=== PATIENT | male | born 1975 | race Caucasian/White ===

== ENCOUNTER 2019-12-13 12:25 | Inpatient (IN) | payer OTHER, SELFPAY ==
[2019-12-13 13:13] VITALS: BP 118/65; PULSE 83; RESP 20; TEMP 36.8; BMI 25.1
--- NOTE | 2019-12-13 13:40 | ED.PSYCH ---
HPI - Psych General Chief Complaint: Psychiatric Symptoms Stated Complaint: CRISIS Time Seen by Provider: 12/13/19 13:21 Source: patient Mode of arrival: ambulatory Limitations: no limitations History of Present Illness HPI Narrative: patient comes to the emergency room complaining of worsening depression, suicidal ideation. Patient states he tried to cut open his wrists with needles prior to arrival. Patient admits to use heroin and alcohol. Patient crying, states he needs help. Related Data Allergies Allergy/AdvReac Type Severity Reaction Status Date / Time No Known Allergies Allergy Unverified 11/01/19 14:54 Review of Systems Review of Systems: Constitutional : No Weight loss, No Fever, No Chills, No Night Sweats, No Fatigue, No Malaise ENT/Mouth : No Hearing loss, No Ear Pain, No Nasal Congestion, No Sinus Pain, No Hoarseness, No sore throat, No Rhinorrhea, No Swallowing Difficulty Eyes: No Eye Pain, No Swelling, No Redness, No Foreign Body, No Discharge, No Vision Changes Cardiovascular : No Chest Pain, No SOB, No Dyspnea on Exertion, No Orthopnea, No Edema, No Palpitations Respiratory : No Cough, No Sputum, No Wheezing, No Smoke Exposure, No Dyspnea Gastrointestinal : No Nausea, No Vomiting, No Diarrhea, No Constipation, No abdominal Pain, No Hematochezia, No Melena Genitourinary : no irregular bleeding, No Dysuria, No Urinary Frequency, No Hematuria, No Urinary Incontinence, No Urgency, No Flank Pain, No Urinary Flow Changes, No Hesitancy Musculoskeletal : No joint pain, No Myalgias, No Joint Swelling Skin : Old needle tract lesions Neuro : No Weakness, No Numbness, No Paresthesias, No Loss of Consciousness, No Dizziness, No Headache Psych : complaining of anxiety, depression, SI, substance abuse, needing help Heme/Lymph: No Bruising, No Bleeding,No Lymphadenopathy Endocrine : No Polyuria, No Polydipsia, No Temperature Intolerance [facility] Past Medical History Medical History Sepsis Substance abuse Social History Social History Alcohol intake: current Alcohol intake frequency: 3 or more drinks per day Smoking Status: Current every day smoker Smoked in Last 30 Days: Yes Use of substances other than those prescribed or required for medical reasons: Yes Substance Use Type: Heroin Substance Use Frequency: Daily Last Used Substance: Just Prior to Admission Any prior treatment program specific to substance use: Yes Advance Directives: No Advance Directives Information Provided: No Physical Exam Vital Signs: Vital Signs: Vital Signs Temp Pulse Resp BP Pulse Ox 12/13/19 16:41 98.9 F 89 18 120/74 96 12/13/19 15:26 98.6 F 95 20 120/75 97 12/13/19 13:13 98.2 F 83 20 118/65 Body Mass Index 25.1 Appearance: Alert. Oriented X3. No acute distress. seems depressed, crying, calm, cooperative, normal thought process Eyes: Pupils equal, round and reactive to light. ENT: Pharynx normal. Neck: Normal inspection. Neck supple. No lymph nodes noted. No crepitus CVS: Normal heart rate and rhythm. Pulses normal. Normal S1 and S2 Respiratory: No respiratory distress. Breath sounds normal. No Wheezing. No rales Abdomen: Soft and nontender. No rigidity. No distention. good BS x4 Skin: Skin warm and dry. old needle track montemayor in right forearm Extremities: No lower extremity edema. No lower extremity edema. No Lacerations. No Rash Neuro: Oriented X 3. No motor deficit. No sensory deficit. Moving all extermities. No slurred speech. Course Course Course Narrative: crisis evaluation pending sign out given to Dr. Dutta [facility] - Psych Restraints Face to Face Assessment: Face to Face Assessment: Current Situation: After assessment of the patient, a review of the pertinent medical record and a discussion with nursing staff, I feel the patient requires a restrain intervention. Reaction To: [] Medical Condition: [] Behavioral State: [] Continued Need: [] Lab Data Result diagrams: 12/13/19 14:04 12/13/19 14:04 Labs: Lab Results 12/13/19 12/13/19 12/13/19 Range/Units 13:29 14:04 14:04 WBC 8.6 (4.8-10.8) X10*3/uL RBC 3.89 L (4.60-5.80) X10*6/uL Hgb 11.6 L (14.0-18.0) g/dl Hct 35.3 L (42-52) % MCV 90.7 (80-98) fL MCH 29.8 (27.0-33.0) pg MCHC 32.9 (31.0-36.0) g/dl RDW 13.2 (11.0-16.0) % Plt Count 255 (160-400) X10*3/uL MPV 9.3 L (9.4-12.4) fL Immature Gran % (Auto) 0.2 (0.0-0.4) % Neut % (Auto) 49.7 (45-73) % Lymph % (Auto) 39.0 (20-40) % [place] % (Auto) 8.2 (2-11) % Eos % (Auto) 2.4 (0-4) % Baso % (Auto) 0.5 (0-2) % Lymph # (Auto) 3.4 (1.2-4.9) X10*3/uL [place] # (Auto) 0.7 (0.1-1.2) X10*3/uL Eos # (Auto) 0.2 (0.0-0.4) X10*3/uL Baso # (Auto) 0.0 (0.0-0.2) X10*3/uL Abs Immat Gran (auto) 0.02 (0.00-0.03) X10*3/uL Absolute Neuts (auto) 4.3 (2.0-8.3) X10*3/uL Absolute Nucleated RBC 0.000 (0.0-0.012) X10*3/uL Nucleated RBC % (auto) 0.0 (0.0-0.2) /100WBC Sodium 138 (135-145) mmol/L Potassium 3.8 (3.3-5.1) mmol/l Chloride 104 (96-108) mmol/L Carbon Dioxide 23 (22-29) mmol/L Anion Gap 15 (12-20) BUN 6 L (9-16) mg/dL Creatinine 0.69 (0.5-1.4) mg/dL Estim Creat Clear Calc 126.3 Estimated GFR > 60 Random Glucose 108 (60-115) mg/dL Calcium 8.8 (8.4-10.2) mg/dL Total Bilirubin 0.7 (0.0-1.0) mg/dL Direct Bilirubin (0.0-0.5) mg/dL AST 68 H (5-37) U/L ALT 81 H (0-40) U/L Alkaline Phosphatase 95 (39-117) U/L Total Protein 7.3 (6.5-8.0) g/dL Albumin 4.2 (3.5-5.0) g/dL Salicylates < 5.0 L (15-30) mg/dL Urine Opiates Screen POSITIVE H (Not Detect) Acetaminophen < 1 (<30) mcg/mL Ur Barbiturates Screen Not Detected (Not Detect) Ur Phencyclidine Scrn Not Detected (Not Detect) Ur Amphetamines Screen Not Detected (Not Detect) U Benzodiazepines Scrn Not Detected (Not Detect) Urine Cocaine Screen Not Detected (Not Detect) U Marijuana (THC) Screen Not Detected (Not Detect) Ethyl Alcohol mg/dL 12/13/19 12/13/19 Range/Units 14:04 14:04 WBC (4.8-10.8) X10*3/uL RBC (4.60-5.80) X10*6/uL Hgb (14.0-18.0) g/dl Hct (42-52) % MCV (80-98) fL MCH (27.0-33.0) pg MCHC (31.0-36.0) g/dl RDW (11.0-16.0) % Plt Count (160-400) X10*3/uL MPV (9.4-12.4) fL Immature Gran % (Auto) (0.0-0.4) % Neut % (Auto) (45-73) % Lymph % (Auto) (20-40) % [place] % (Auto) (2-11) % Eos % (Auto) (0-4) % Baso % (Auto) (0-2) % Lymph # (Auto) (1.2-4.9) X10*3/uL [place] # (Auto) (0.1-1.2) X10*3/uL Eos # (Auto) (0.0-0.4) X10*3/uL Baso # (Auto) (0.0-0.2) X10*3/uL Abs Immat Gran (auto) (0.00-0.03) X10*3/uL Absolute Neuts (auto) (2.0-8.3) X10*3/uL Absolute Nucleated RBC (0.0-0.012) X10*3/uL Nucleated RBC % (auto) (0.0-0.2) /100WBC Sodium (135-145) mmol/L Potassium (3.3-5.1) mmol/l Chloride (96-108) mmol/L Carbon Dioxide (22-29) mmol/L Anion Gap (12-20) BUN (9-16) mg/dL Creatinine (0.5-1.4) mg/dL Estim Creat Clear Calc Estimated GFR Random Glucose (60-115) mg/dL Calcium (8.4-10.2) mg/dL Total Bilirubin 0.7 (0.0-1.0) mg/dL Direct Bilirubin 0.2 (0.0-0.5) mg/dL AST 68 H (5-37) U/L ALT 83 H (0-40) U/L Alkaline Phosphatase 97 (39-117) U/L Total Protein 7.3 (6.5-8.0) g/dL Albumin 4.2 (3.5-5.0) g/dL Salicylates (15-30) mg/dL Urine Opiates Screen (Not Detect) Acetaminophen (<30) mcg/mL Ur Barbiturates Screen (Not Detect) Ur Phencyclidine Scrn (Not Detect) Ur Amphetamines Screen (Not Detect) U Benzodiazepines Scrn (Not Detect) Urine Cocaine Screen (Not Detect) U Marijuana (THC) Screen (Not Detect) Ethyl Alcohol 137 mg/dL Discharge Plan Discharge Clinical Impression: Depression, Suicidal ideation
[2019-12-13 14:05] LABS: Amphetamine Screen Urine Not Detected (Not Detect); Barbiturates, Urine Not Detected (Not Detect); Benzodiazepines Screen Urine Not Detected (Not Detect); Cannabinoid Screen Urine Not Detected (Not Detect); Cocaine Screen Urine Not Detected (Not Detect); Opiate Screen Urine POSITIVE (Not Detect); Phencyclidine Screen Urine Not Detected (Not Detect)
[2019-12-13 14:13] LABS: MANUAL DIFF FLAG NO
[2019-12-13 14:16] LABS: Basophils Percent Auto 0.5 % (0-2); Eosinophils Absolute Auto 0.2 X10*3/uL (0.0-0.4); Eosinophils Percent Auto 2.4 % (0-4); Hematocrit 35.3 % (42-52); Hemoglobin 11.6 g/dl (14.0-18.0); Imm Gran Abs Auto 0.02 X10*3/uL (0.00-0.03); Imm Gran Pct Auto 0.2 % (0.0-0.4); Lymphocytes Absolute Auto 3.4 X10*3/uL (1.2-4.9); Mean Corpuscular HGB Conc 32.9 g/dl (31.0-36.0); Mean Corpuscular Hemoglobin 29.8 pg (27.0-33.0); Mean Corpuscular Volume 90.7 fL (80-98); Mean Platelet Volume 9.3 fL (9.4-12.4); Monocytes Absolute Auto 0.7 X10*3/uL (0.1-1.2); Monocytes Percent Auto 8.2 % (2-11); Neutrophils Absolute Auto 4.3 X10*3/uL (2.0-8.3); Neutrophils Percent Auto 49.7 % (45-73); Platelet Count 255 X10*3/uL (160-400); Red Blood Count 3.89 X10*6/uL (4.60-5.80); Red Cell Distribution Width 13.2 % (11.0-16.0); White Blood Count 8.6 X10*3/uL (4.8-10.8)
[2019-12-13 14:37] LABS: Ethanol 137 mg/dL
[2019-12-13 14:40] LABS: Alanine Aminotransferase 83 U/L (0-40); Albumin Level 4.2 g/dL (3.5-5.0); Alkaline Phosphatase 97 U/L (39-117); Aspartate Amino Transferase 68 U/L (5-37); Bilirubin Direct 0.2 mg/dL (0.0-0.5); Bilirubin Total 0.7 mg/dL (0.0-1.0); Total Protein 7.3 g/dL (6.5-8.0)
[2019-12-13 14:41] LABS: Acetaminophen LAB < 1 mcg/mL (<30); Alanine Aminotransferase 81 U/L (0-40); Albumin Level 4.2 g/dL (3.5-5.0); Alkaline Phosphatase 95 U/L (39-117); Anion Gap 15 (12-20); Aspartate Amino Transferase 68 U/L (5-37); Bilirubin Total 0.7 mg/dL (0.0-1.0); Blood Urea Nitrogen 6 mg/dL (9-16); Calcium 8.8 mg/dL (8.4-10.2); Carbon Dioxide 23 mmol/L (22-29); Chloride 104 mmol/L (96-108); Creatinine Clr Calc Pharmacy 126.3; Estimated Glomerular Filt Rate > 60; Glucose Random 108 mg/dL (60-115); Potassium 3.8 mmol/l (3.3-5.1); Salicylate < 5.0 mg/dL (15-30); Sodium 138 mmol/L (135-145); Total Protein 7.3 g/dL (6.5-8.0)
[2019-12-13 15:26] VITALS: BP 120/75; PULSE 95; RESP 20; TEMP 37; O2SAT 97
--- NOTE | 2019-12-13 15:38 | PC.NURSE ---
Dr Puente notified that pt is experiencing symptoms of withdrawal including nausea, tremors, diaphoresis.
[2019-12-13] MEDS: LORazepam 1 MG TABLET 2 MG PO ×2 (15:43)
[2019-12-13 16:41] VITALS: BP 120/74; PULSE 89; RESP 18; TEMP 37.2; O2SAT 96
[2019-12-13 18:00] VITALS: BP 118/75; PULSE 78; RESP 20
[2019-12-13] MEDS: Ibuprofen 600 MG TABLET PO (18:42)
[2019-12-13] MEDS: LORazepam 1 MG TABLET PO (18:42)
--- NOTE | 2019-12-13 19:14 | PC.NURSE ---
Report received. PT is sleeping in bed. Breathing is even and unlabored. Waiting to be seen be N.
--- NOTE | 2019-12-13 19:37 | PC.NURSE ---
Care Team to see PT to expedite transfer to [facility].
[2019-12-13 21:41] VITALS: BP 103/41; PULSE 96; RESP 18; TEMP 37.1; O2SAT 97
[2019-12-13 22:49] LABS: SARS COV2 PCR INHOUSE NEGATIVE (Negative)
[2019-12-14] VITALS (7 sets, daily range): BP systolic 112–144; BP diastolic 70–88; PULSE 60–97; RESP 16–18; TEMP 36.4–36.7; O2SAT 98–100
--- NOTE | 2019-12-14 02:55 | PC.ADMIT ---
Patient is an Maltese speaking 44 yo male presenting to for unspecified depressive disorder, AUD, and OUD. Pt walked to [facility] ED on 12/12/29 and was admitted related to SI with plan. Pt reported using needles to make himself bleed out and then began using needles to cut tips of fingers. Superficial puncture wounds/scratches assessed of bilateral wrists and tips of fingers with no S&S of infection. IV injection site on right forearm assessed w/ no S&S of infection. No other compromise to skin integrity was reported by pt and none was observed by this nurse. Pending full H&P by a provider. Pt has a medical hx of sepsis (2015), seizure r/t ETOH withdrawal (over 10 years ago, bilateral chronic shoulder/right knee pain (/ pain), and hx of difficulty sleeping. Pt reports 10+ yr hx of opiate use. He had tapered down to 60 mg daily through [facility]. In September, I just stopped going. Pt has been using 5 bags of heroin daily since. Pt also used minimum of 4x 24 oz. cans of beer daily for years. Last use of ETOH and heroin was in the morning of 12/13/19. Pt reports having 8 seizures in one day due to ETOH withdrawal over 10 years ago. I was drinking a gallon of vodka a day. Pt informed of precipitated withdrawal r/t early admin of Suboxone. He expressed interest in maintenance or taper. Pt also smokes 1/2 pack of cigarettes daily and is interested in gum/patch but not in cessation at this time. Pt was previosly admitted to [facility] in 2018 but nor [facility] for psych. No psychiatrist/therapist in the past year and pharmacy denied medication over past year. Pt currently lives in an apartment with roommates actively using drugs. Pt is estranged from who also uses opiates. His mother 4 years ago: I've never grieved her loss. He reports positive relationship with cousin and signed release. Current income is supported by [employer] and food assistance. At time of admission pt denied current SI/plan and agreeable to seek staff if necessary. Pt denied HI but does have a hx of incarceration r/t A&B. Denied AH/VH; denied allergies. Pt presented as restless, with his head down on the table. Reported diarrhea, myalgia, and nausea r/t withdrawal. VSS. Oriented to unit. Placed on 5 min safety checks pending orders from on-call provider.
[2019-12-14] MEDS: LORazepam 1 MG TABLET PO ×4 (09:09→20:53)
[2019-12-14] MEDS: Acetaminophen 325 MG TABLET 650 MG PO ×2 (09:14→21:25)
[2019-12-14] MEDS: hydrOXYzine HCL 25 MG TABLET PO ×2 (09:14→20:53)
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
[2019-12-14] MEDS: Buprenorphine/Naloxone 4/1 mg FILM 1 FILM SUBLINGUAL ×2 (14:40→17:44)
[2019-12-14] MEDS: Cyclobenzaprine HCl 5 MG TABLET PO (20:53)
[2019-12-14] MEDS: cloNIDine HCL 0.1 MG TABLET PO (20:53)
[2019-12-14] MEDS: QUEtiapine Fumarate 50 MG TABLET PO (21:26)
[2019-12-15] MEDS: hydrOXYzine HCL 25 MG TABLET PO (00:03)
[2019-12-15] MEDS: QUEtiapine Fumarate 50 MG TABLET PO (00:03)
[2019-12-15 06:40] VITALS: BP 99/59; PULSE 62; RESP 16; TEMP 36.8
[2019-12-15 08:00] VITALS: BP 112/72; PULSE 88; RESP 18; TEMP 36.6; O2SAT 99
[2019-12-15] MEDS: Buprenorphine/Naloxone 8/2 mg FILM 1 FILM SUBLINGUAL (09:14)
[2019-12-15 09:15] VITALS: BP 120/80; PULSE 70
[2019-12-15] MEDS: cloNIDine HCL 0.1 MG TABLET PO (09:15)
[2019-12-15] MEDS: Sertraline HCL 50 MG TABLET PO (09:19)
[2019-12-15] MEDS: LORazepam 1 MG TABLET PO ×3 (09:19→21:13)
--- NOTE | 2019-12-15 10:55 | P.PNPSI_ITS ---
Subjective Subjective Date of Service: 12/15/19 Reason For Visit: CRISIS/DEPRESSION/SI Subjective Notes: Conditional Voluntary Interim History: Patient struggling with himself, doesn't like who he has become. Depressed and anxious after years of opiate abuse feeling hopless and helpless does report stomach feels better on current medication up 3x last night 12mn, then 1:30 then 3 am co pain in shoulder some minor withdrawl still though looks defeated some diaphoresis agree to inc suboxone 8 to 12mg/day Medication Compliance: Yes Side effects from medications: No Attending Groups: Intermittent Review of Systems Acute medical concerns: No Review of Systems Review of Systems Yes all other systems are reviewed and are negative Constitutional: Reports excessive sweating, Reports fatigue and Reports lethargy Endocrine: Reports excessive sweating and Reports fatigue Mental Status Exam Mental Status Exam Narrative: Alert - depressed, restricted, hopeless/helpless some si - no current plan/intent on unit Patient Appearance: Fatigued and Unkempt Patient Orientation: Person, Place, Time and Situation Level of Consciousness: Awake and Appropriate Patient Behavior: Appropriate, Cooperative and Good Eye Contact Mood Description: Constricted and Depressed Affect Description: Constricted and Depressed Patient Cognition Impaired: No Ability to Follow Directions: Good Speech Pattern: Clear Hallucinations: None Delusions: Not Present Thought Process: Intact and Goal Oriented Thought Content: positive for Intact, positive for Goal Oriented and positive for Suicidal Ideation (feelings of self hatred) Depressive Symptoms: Difficulty Sleeping, Feelings of Worthlessness, Hopel essness and Thoughts of /Suicide Abnormal Motor Activity Signs and Symptoms: Restlessness Judgement: Fair Diagnostics Vital Signs (24Hr): Vital Signs - 24 hr 12/14/19 14:33 12/14/19 17:50 12/14/19 20:53 Temperature 98.1 F Pulse Rate 97 96 93 Respiratory Rate Blood Pressure 144/76 H 117/88 112/76 12/14/19 20:55 12/15/19 06:40 12/15/19 09:15 Temperature 97.8 F 98.2 F Pulse Rate 62 70 Respiratory Rate 16 Blood Pressure 99/59 L 120/80 Body Mass Index 25.1 Labs Results: 12/13/19 14:04 12/13/19 14:04 Labs: Laboratory Results - last 48 hr 12/13/19 12/13/19 12/13/19 13:29 14:04 14:04 WBC 8.6 RBC 3.89 L Hgb 11.6 L Hct 35.3 L MCV 90.7 MCH 29.8 MCHC 32.9 RDW 13.2 Plt Count 255 MPV 9.3 L Immature Gran % (Auto) 0.2 Neut % (Auto) 49.7 Lymph % (Auto) 39.0 [place] % (Auto) 8.2 Eos % (Auto) 2.4 Baso % (Auto) 0.5 Lymph # (Auto) 3.4 [place] # (Auto) 0.7 Eos # (Auto) 0.2 Baso # (Auto) 0.0 Abs Immat Gran (auto) 0.02 Absolute Neuts (auto) 4.3 Absolute Nucleated RBC 0.000 Nucleated RBC % (auto) 0.0 Sodium 138 Potassium 3.8 Chloride 104 Carbon Dioxide 23 Anion Gap 15 BUN 6 L Creatinine 0.69 Estim Creat Clear Calc 126.3 Estimated GFR > 60 Random Glucose 108 Calcium 8.8 Total Bilirubin 0.7 Direct Bilirubin AST 68 H ALT 81 H Alkaline Phosphatase 95 Total Protein 7.3 Albumin 4.2 Salicylates < 5.0 L Urine Opiates Screen POSITIVE H Acetaminophen < 1 Ur Barbiturates Screen Not Detected Ur Phencyclidine Scrn Not Detected Ur Amphetamines Screen Not Detected U Benzodiazepines Scrn Not Detected Urine Cocaine Screen Not Detected U Marijuana (THC) Screen Not Detected Ethyl Alcohol Coronavirus (PCR) 12/13/19 12/13/19 12/13/19 14:04 14:04 21:19 WBC RBC Hgb Hct MCV MCH MCHC RDW Plt Count MPV Immature Gran % (Auto) Neut % (Auto) Lymph % (Auto) [place] % (Auto) Eos % (Auto) Baso % (Auto) Lymph # (Auto) [place] # (Auto) Eos # (Auto) Baso # (Auto) Abs Immat Gran (auto) Absolute Neuts (auto) Absolute Nucleated RBC Nucleated RBC % (auto) Sodium Potassium Chloride Carbon Dioxide Anion Gap BUN Creatinine Estim Creat Clear Calc Estimated GFR Random Glucose Calcium Total Bilirubin 0.7 Direct Bilirubin 0.2 AST 68 H ALT 83 H Alkaline Phosphatase 97 Total Protein 7.3 Albumin 4.2 Salicylates Urine Opiates Screen Acetaminophen Ur Barbiturates Screen Ur Phencyclidine Scrn Ur Amphetamines Screen U Benzodiazepines Scrn Urine Cocaine Screen U Marijuana (THC) Screen Ethyl Alcohol 137 Coronavirus (PCR) NEGATIVE Medications Medications Current Medications Generic Name Dose Route Start Last Admin Trade Name Freq PRN Reason Stop Dose Admin Acetaminophen 650 mg 12/14/19 05:39 12/14/19 21:25 Acetaminophen 325 Mg Tablet PO 650 mg Q6H PRN Administration Headache/Pain Mild Scale (1-3) Al Hydroxide/Mg Hydroxide 30 ml 12/13/19 23:23 Magnesium Hydrox/Alum Hydrox 30 Ml Oral.Susp PO Q6H PRN Heartburn/Nausea Buprenorphine/Naloxone 1 film 12/15/19 09:00 12/15/19 09:14 Buprenorphine/Naloxone 8/2 Mg Film SUBLINGUAL 1 film DAILY TONY Administration Clonidine HCl 0.1 mg 12/14/19 05:39 12/14/19 20:53 Clonidine Hcl 0.1 Mg Tablet PO 0.1 mg Q4H PRN Administration Opiate Withdrawal Protocol Clonidine HCl 0.1 mg 12/15/19 09:00 12/15/19 09:15 Clonidine Hcl 0.1 Mg Tablet PO 0.1 mg TID TONY Administration Protocol Cyclobenzaprine HCl 5 mg 12/14/19 05:39 12/14/19 20:53 Cyclobenzaprine Hcl 5 Mg Tablet PO 5 mg TID PRN Administration Muscle Spasm Hydroxyzine HCl 25 mg 12/14/19 05:39 12/15/19 00:03 Hydroxyzine Hcl 25 Mg Tablet PO 25 mg Q6H PRN Administration Opiate Withdrawal Loperamide HCl 4 mg 12/14/19 14:15 Loperamide Hcl 2 Mg Capsule PO Q4H PRN Diarrhea Lorazepam 1 mg 12/14/19 07:29 12/15/19 09:20 Lorazepam 1 Mg Tablet PO 12/18/19 07:28 Not Given Q6H TONY Taper Lorazepam 1 mg 12/15/19 09:00 12/15/19 09:19 Lorazepam 1 Mg Tablet PO 1 mg TID TONY Administration Magnesium Hydroxide 30 ml 12/13/19 23:23 Milk Of Magnesia 30 Ml Oral.Susp PO DAILY PRN Constipation Nicotine 21 mg 12/14/19 09:00 12/15/19 09:29 Nicotine 21 Mg Patch.Td24 TRANSDERMA Not Given DAILY TONY Nicotine Polacrilex 4 mg 12/14/19 05:39 Nicotine Polacrilex 2 Mg Gum BUCCAL Q2H PRN Nicotine Cravings Ondansetron HCl 4 mg 12/14/19 05:39 12/14/19 20:53 Ondansetron Odt 4 Mg Tab.Rapdis TRANSLINGU 4 mg Q6H PRN Administration Nausea Quetiapine Fumarate 50 mg 12/14/19 21:00 12/15/19 00:03 Quetiapine Fumarate 50 Mg Tablet PO 50 mg BEDTIME MRX1 TONY Administration Sertraline HCl 50 mg 12/15/19 09:00 12/15/19 09:19 Sertraline Hcl 50 Mg Tablet PO 50 mg DAILY TONY Administration Trazodone HCl 50 mg 12/15/19 21:00 Trazodone Hcl 50 Mg Tablet PO BEDTIME MRX1 TONY Allergies Allergies Allergy/AdvReac Type Severity Reaction Status Date / Time No Known Allergies Allergy Unverified 11/01/19 14:54 Assessment & Plan Assessment & Plan (1) Opioid use disorder, severe, in controlled environment: Status: Acute Code(s): F11.20 - Opioid dependence, uncomplicated Assessment and Plan: tolerated induction of suboxone, now adjusting dose no cravings but some diaphoresis (2) Alcohol use disorder, severe, dependence: Status: Acute Code(s): F10.20 - Alcohol dependence, uncomplicated Assessment and Plan: on ativan with fair effect no craving will need taper off ativan (3) Major depressive disorder with current active episode: Status: Acute Code(s): F32.9 - Major depressive disorder, single episode, unspecified Assessment and Plan: taking medications for depression , tolerating trial still hugely depressed (4) Suicidal ideation: Status: Acute Code(s): R45.851 - Suicidal ideations Assessment and Plan: agrees not to hurt self on unti will tell staff if he is having thoughts of acting on si Greater than 50% of the session was spent on counseling and/or coordination of care
[2019-12-15 12:00] VITALS: BP 117/68; PULSE 77; RESP 17; TEMP 36.6; O2SAT 100
[2019-12-15] MEDS: Buprenorphine/Naloxone 4/1 mg FILM 1 FILM SUBLINGUAL (15:00)
[2019-12-15 16:00] VITALS: BP 98/67; PULSE 73; TEMP 36.6
[2019-12-15] MEDS: Cyclobenzaprine HCl 5 MG TABLET PO (21:13)
[2019-12-15] MEDS: QUEtiapine Fumarate 50 MG TABLET 100 MG PO ×2 (21:13→23:05)
[2019-12-15] MEDS: Loperamide HCl 2 MG CAPSULE 4 MG PO (21:13)
[2019-12-16] VITALS (8 sets, daily range): BP systolic 107–127; BP diastolic 58–67; PULSE 69–85; RESP 16–18; TEMP 36.1–36.9; O2SAT 97–98
[2019-12-16] MEDS: Buprenorphine/Naloxone 8/2 mg FILM 1 FILM SUBLINGUAL (09:03)
[2019-12-16] MEDS: LORazepam 1 MG TABLET PO ×2 (09:03→20:35)
[2019-12-16] MEDS: Sertraline HCL 50 MG TABLET PO (09:03)
[2019-12-16] MEDS: hydrOXYzine HCL 25 MG TABLET PO (12:08)
[2019-12-16] MEDS: Acetaminophen 325 MG TABLET 650 MG PO ×2 (12:08→22:26)
[2019-12-16] MEDS: Buprenorphine/Naloxone 4/1 mg FILM 1 FILM SUBLINGUAL (12:08)
--- NOTE | 2019-12-16 15:01 | HO.PSYCHPN ---
Subjective Subjective Date of Service: 12/16/19 Reason For Visit: CRISIS/DEPRESSION/SI Subjective Notes: Conditional Voluntary Interim History: My mother told me to be honest with doctors I never have- reports perfers dark, would like to sleep , hates day- depression yesterday, anxiety today slept better last pm also reports family hx bipolar, mother , uncle aunt, cousin Medication Compliance: Yes Side effects from medications: No Attending Groups: Yes Review of Systems Acute medical concerns: No Medical Review of Systems: unchanged Review of Systems Review of Systems Yes all other systems are reviewed and are negative Mental Status Exam Mental Status Exam Narrative: more kempt today, better eye contact less restricted- no diaphoresis Patient Appearance: Well Grooomed Patient Orientation: Person, Place, Time and Situation Level of Consciousness: Awake and Appropriate Patient Behavior: Appropriate Mood Description: Anxious Affect Description: Calm (full range) Patient Cognition Impaired: No Ability to Follow Directions: Good Speech Pattern: Clear Hallucinations: None and Auditory (reported ah of a voice his own telling him to not come to hospital while on way to hospital) Delusions: Not Present Thought Process: Intact Thought Content: positive for Intact and positive for Suicidal Ideation (sometimes) Depressive Symptoms: Increased Anxiety, Difficulty Sleeping (a bit better last night), Thoughts of /Suicide and Difficulty Concentrating Abnormal Motor Activity Signs and Symptoms: Restlessness Judgement: Fair Diagnostics Vital Signs (24Hr): Vital Signs - 24 hr 12/16/19 06:25 12/16/19 08:00 12/16/19 12:00 Temperature 97.7 F 97.9 F 98 F Pulse Rate 80 78 83 Respiratory Rate 16 18 18 Blood Pressure 115/64 118/67 126/66 Pulse Oximetry 97 98 97 Body Mass Index 25.1 Labs Results: 12/13/19 14:04 12/13/19 14:04 Medications Medications Current Medications Generic Name Dose Route Start Last Admin Trade Name Freq PRN Reason Stop Dose Admin Acetaminophen 650 mg 12/14/19 05:39 12/16/19 12:08 Acetaminophen 325 Mg Tablet PO 650 mg Q6H PRN Administration Headache/Pain Mild Scale (1-3) Al Hydroxide/Mg Hydroxide 30 ml 12/13/19 23:23 Magnesium Hydrox/Alum Hydrox 30 Ml Oral.Susp PO Q6H PRN Heartburn/Nausea Buprenorphine/Naloxone 1 film 12/17/19 09:00 Buprenorphine/Naloxone 12/3 Mg Film SUBLINGUAL DAILY TONY Clonidine HCl 0.1 mg 12/14/19 05:39 12/14/19 20:53 Clonidine Hcl 0.1 Mg Tablet PO 0.1 mg Q4H PRN Administration Opiate Withdrawal Protocol Clonidine HCl 0.1 mg 12/15/19 13:48 Clonidine Hcl 0.1 Mg Tablet PO TID PRN anxiety/opiate withdrawl Protocol Cyclobenzaprine HCl 5 mg 12/14/19 05:39 12/15/19 21:13 Cyclobenzaprine Hcl 5 Mg Tablet PO 5 mg TID PRN Administration Muscle Spasm Hydroxyzine HCl 25 mg 12/14/19 05:39 12/16/19 12:08 Hydroxyzine Hcl 25 Mg Tablet PO 25 mg Q6H PRN Administration Opiate Withdrawal Loperamide HCl 4 mg 12/14/19 14:15 12/15/19 21:13 Loperamide Hcl 2 Mg Capsule PO 4 mg Q4H PRN Administration Diarrhea Lorazepam 0.5 mg 12/15/19 13:56 Lorazepam 1 Mg Tablet PO 12/18/19 07:28 Q6H PRN alcohol withdrawl/severe anxiety Taper Lorazepam 1 mg 12/16/19 21:00 Lorazepam 1 Mg Tablet PO BID TONY Magnesium Hydroxide 30 ml 12/13/19 23:23 Milk Of Magnesia 30 Ml Oral.Susp PO DAILY PRN Constipation Naloxone HCl 4 mg 12/16/19 09:25 Naloxone Hcl Nasal 4 Mg [place] NOSTRILALT ONCE PRN opioid overdose Nicotine Polacrilex 4 mg 12/14/19 05:39 Nicotine Polacrilex 2 Mg Gum BUCCAL Q2H PRN Nicotine Cravings Ondansetron HCl 4 mg 12/14/19 05:39 12/14/19 20:53 Ondansetron Odt 4 Mg Tab.Rapdis TRANSLINGU 4 mg Q6H PRN Administration Nausea Quetiapine Fumarate 100 mg 12/15/19 21:00 12/15/19 23:05 Quetiapine Fumarate 50 Mg Tablet PO 100 mg BEDTIME MRX1 TONY Administration Sertraline HCl 50 mg 12/15/19 09:00 12/16/19 09:03 Sertraline Hcl 50 Mg Tablet PO 50 mg DAILY TONY Administration Trazodone HCl 100 mg 12/15/19 13:48 Trazodone Hcl 50 Mg Tablet PO BEDTIME MRX1 PRN Insomnia Allergies Allergies Allergy/AdvReac Type Severity Reaction Status Date / Time No Known Allergies Allergy Unverified 11/01/19 14:54 Assessment & Plan Assessment & Plan (1) Opioid use disorder, severe, in controlled environment: Status: Acute Code(s): F11.20 - Opioid dependence, uncomplicated Assessment and Plan: taper clonidine on suboxone now 12m seems to holding (2) Alcohol use disorder, severe, dependence: Status: Acute Code(s): F10.20 - Alcohol dependence, uncomplicated Assessment and Plan: taper down on lorazepam (3) Depression: Status: Acute Code(s): F32.9 - Major depressive disorder, single episode, unspecified Assessment and Plan: consider mood stabilizer instead of sertraline? (4) Suicidal ideation: Status: Acute Code(s): R45.851 - Suicidal ideations Assessment and Plan: mileu and groups , monitor Greater than 50% of the session was spent on counseling and/or coordination of care
[2019-12-16] MEDS: cloNIDine HCL 0.1 MG TABLET PO (16:53)
[2019-12-16] MEDS: QUEtiapine Fumarate 50 MG TABLET 100 MG PO ×2 (20:35→22:26)
[2019-12-16] MEDS: traZODone HCL 50 MG TABLET 100 MG PO ×2 (20:35→22:26)
[2019-12-17] VITALS (7 sets, daily range): BP systolic 90–114; BP diastolic 50–70; PULSE 78–86; RESP 16; TEMP 36.3–37.1
[2019-12-17 03:35] LABS: HBS Num1 14.12 mIU/mL (0-7.99); HBc Num1 0.07 S/CO (0.00-0.79); Hepatitis B Core Antibody Nonreactive (Nonreactive); ~HepC Num1 15.36 S/CO (0.00-0.79); ~Hepatitis B Surface Antibody REACTIVE (Nonreactive); ~Hepatitis C Antibody Reactive (Nonreactive)
[2019-12-17 04:07] LABS: HBsAGNum1 0.17 S/CO (0.00-0.99); Hepatitis B Surface Antigen Negative (Negative)
[2019-12-17 04:14] LABS: HIV AB/AG Nonreactive (Nonreactive); HIV Num 1 0.11 S/CO (0.00-0.99)
--- NOTE | 2019-12-17 08:35 | P.PNPSI_ITS ---
Subjective Subjective Reason For Visit: CRISIS/DEPRESSION/SI Interim History: Mood better. No SI. Hopeful and motivated. Suboxone helpful. Encouraged to consider CSS. Taper meds of detox. DW pt re GI referral for Hep C Rx. Review of Systems Review of Systems Yes Other (Detox from opioids and ETOH) Mental Status Exam Mental Status Exam Narrative: more kempt today, better eye contact less restricted- no diaphoresis Patient Appearance: Well Grooomed Patient Orientation: Person, Place, Time and Situation Level of Consciousness: Awake and Appropriate Patient Behavior: Appropriate Mood Description: Anxious Affect Description: Calm (full range) Patient Cognition Impaired: No Ability to Follow Directions: Good Speech Pattern: Clear Diagnostics Vital Signs (24Hr): Vital Signs - 24 hr 12/16/19 12:00 12/16/19 16:53 12/16/19 16:54 Temperature 98 F 98.5 F Pulse Rate 83 69 69 Respiratory Rate 18 Blood Pressure 126/66 109/65 109/65 Pulse Oximetry 97 12/16/19 20:37 12/16/19 22:46 12/17/19 06:05 Temperature 96.9 F 97.4 F Pulse Rate 72 85 78 Respiratory Rate 16 16 Blood Pressure 127/58 L 107/64 90/50 L Pulse Oximetry Body Mass Index 25.1 Labs Results: 12/13/19 14:04 12/13/19 14:04 Labs: Laboratory Results - last 48 hr 12/15/19 12/15/19 13:57 13:57 Hep Bs Antigen Negative Hep Bs Antibody REACTIVE Hep B Core Total Ab Nonreactive Hepatitis C Ab (EIA) Reactive H HIV 1&2 Ab/P24 Ag 4thGn Nonreactive Medications Medications Current Medications Generic Name Dose Route Start Last Admin Trade Name Freq PRN Reason Stop Dose Admin Acetaminophen 650 mg 12/14/19 05:39 12/16/19 22:26 Acetaminophen 325 Mg Tablet PO 650 mg Q6H PRN Administration Headache/Pain Mild Scale (1-3) Al Hydroxide/Mg Hydroxide 30 ml 12/13/19 23:23 Magnesium Hydrox/Alum Hydrox 30 Ml Oral.Susp PO Q6H PRN Heartburn/Nausea Buprenorphine/Naloxone 1 film 12/17/19 09:00 Buprenorphine/Naloxone 12/3 Mg Film SUBLINGUAL DAILY TONY Clonidine HCl 0.1 mg 12/15/19 13:48 Clonidine Hcl 0.1 Mg Tablet PO TID PRN anxiety/opiate withdrawl Protocol Cyclobenzaprine HCl 5 mg 12/14/19 05:39 12/15/19 21:13 Cyclobenzaprine Hcl 5 Mg Tablet PO 5 mg TID PRN Administration Muscle Spasm Hydroxyzine HCl 25 mg 12/14/19 05:39 12/16/19 12:08 Hydroxyzine Hcl 25 Mg Tablet PO 25 mg Q6H PRN Administration Opiate Withdrawal Loperamide HCl 4 mg 12/14/19 14:15 12/15/19 21:13 Loperamide Hcl 2 Mg Capsule PO 4 mg Q4H PRN Administration Diarrhea Lorazepam 0.5 mg 12/15/19 13:56 Lorazepam 1 Mg Tablet PO 12/18/19 07:28 Q6H PRN alcohol withdrawl/severe anxiety Taper Lorazepam 1 mg 12/16/19 21:00 12/16/19 20:35 Lorazepam 1 Mg Tablet PO 1 mg BID TONY Administration Magnesium Hydroxide 30 ml 12/13/19 23:23 Milk Of Magnesia 30 Ml Oral.Susp PO DAILY PRN Constipation Naloxone HCl 4 mg 12/16/19 09:25 Naloxone Hcl Nasal 4 Mg [place] NOSTRILALT ONCE PRN opioid overdose Nicotine Polacrilex 4 mg 12/14/19 05:39 Nicotine Polacrilex 2 Mg Gum BUCCAL Q2H PRN Nicotine Cravings Ondansetron HCl 4 mg 12/14/19 05:39 12/14/19 20:53 Ondansetron Odt 4 Mg Tab.Rapdis TRANSLINGU 4 mg Q6H PRN Administration Nausea Quetiapine Fumarate 100 mg 12/15/19 21:00 12/16/19 22:26 Quetiapine Fumarate 50 Mg Tablet PO 100 mg BEDTIME MRX1 TONY Administration Sertraline HCl 50 mg 12/15/19 09:00 12/16/19 09:03 Sertraline Hcl 50 Mg Tablet PO 50 mg DAILY TONY Administration Trazodone HCl 100 mg 12/15/19 13:48 12/16/19 22:26 Trazodone Hcl 50 Mg Tablet PO 100 mg BEDTIME MRX1 PRN Administration Insomnia Allergies Allergies Allergy/AdvReac Type Severity Reaction Status Date / Time No Known Allergies Allergy Unverified 11/01/19 14:54 Assessment & Plan Assessment & Plan (1) Opioid use disorder, severe, in controlled environment: Status: Acute Code(s): F11.20 - Opioid dependence, uncomplicated Assessment and Plan: taper clonidine on suboxone now 12m seems to holding (2) Alcohol use disorder, severe, dependence: Status: Acute Code(s): F10.20 - Alcohol dependence, uncomplicated Assessment and Plan: taper down on lorazepam. Refer to [facility] (3) Depression: Status: Acute Code(s): F32.9 - Major depressive disorder, single episode, unspecified Assessment and Plan: Ct sertraline (4) Suicidal ideation: Status: Acute Code(s): R45.851 - Suicidal ideations Assessment and Plan: milvignesh and groups , monitor Greater than 50% of the session was spent on counseling and/or coordination of care
[2019-12-17] MEDS: Sertraline HCL 50 MG TABLET PO (08:40)
[2019-12-17] MEDS: Buprenorphine/Naloxone 12/3 mg FILM 1 FILM SUBLINGUAL (08:40)
[2019-12-17] MEDS: LORazepam 1 MG TABLET PO ×2 (08:40→21:07)
[2019-12-17] MEDS: Acetaminophen 325 MG TABLET 650 MG PO (16:06)
[2019-12-17] MEDS: cloNIDine HCL 0.1 MG TABLET PO (16:07)
[2019-12-17] MEDS: QUEtiapine Fumarate 50 MG TABLET 100 MG PO (21:07)
[2019-12-17] MEDS: Cyclobenzaprine HCl 5 MG TABLET PO (21:18)
--- NOTE | 2019-12-18 05:20 | HO.PSYCHPN ---
Subjective Subjective Reason For Visit: CRISIS/DEPRESSION/SI Interim History: Mood better. No SI. Hopeful and motivated. Suboxone helpful. Encouraged to consider CSS. Decreased doses of Lorazepam. WD Sx resolving. Decreased cravings Review of Systems Review of Systems Yes all other systems are reviewed and are negative Mental Status Exam Mental Status Exam Narrative: more kempt today, better eye contact less restricted- no diaphoresis Patient Appearance: Well Grooomed Patient Orientation: Person, Place, Time and Situation Level of Consciousness: Awake and Appropriate Patient Behavior: Appropriate Mood Description: Anxious Affect Description: Calm (full range) Patient Cognition Impaired: No Ability to Follow Directions: Good Speech Pattern: Clear Diagnostics Vital Signs (24Hr): Vital Signs - 24 hr 12/17/19 06:05 12/17/19 08:00 12/17/19 08:53 Temperature 97.4 F Pulse Rate 78 78 78 Respiratory Rate 16 Blood Pressure 90/50 L 90/50 L 90/50 L 12/17/19 12:00 12/17/19 16:00 12/17/19 16:07 Temperature 98.8 F Pulse Rate 78 82 82 Respiratory Rate Blood Pressure 104/62 113/70 113/70 12/17/19 19:45 Temperature 98.0 F Pulse Rate 86 Respiratory Rate Blood Pressure 114/59 L Body Mass Index 25.1 Labs Results: 12/13/19 14:04 12/13/19 14:04 Labs: Laboratory Results - last 48 hr 12/15/19 12/15/19 13:57 13:57 Hep Bs Antigen Negative Hep Bs Antibody REACTIVE Hep B Core Total Ab Nonreactive Hepatitis C Ab (EIA) Reactive H HIV 1&2 Ab/P24 Ag 4thGn Nonreactive Medications Medications Current Medications Generic Name Dose Route Start Last Admin Trade Name Freq PRN Reason Stop Dose Admin Acetaminophen 650 mg 12/14/19 05:39 12/17/19 16:06 Acetaminophen 325 Mg Tablet PO 650 mg Q6H PRN Administration Headache/Pain Mild Scale (1-3) Al Hydroxide/Mg Hydroxide 30 ml 12/13/19 23:23 Magnesium Hydrox/Alum Hydrox 30 Ml Oral.Susp PO Q6H PRN Heartburn/Nausea Buprenorphine/Naloxone 1 film 12/17/19 09:00 12/17/19 08:40 Buprenorphine/Naloxone 12/3 Mg Film SUBLINGUAL 1 film DAILY TONY Administration Clonidine HCl 0.1 mg 12/15/19 13:48 12/17/19 16:07 Clonidine Hcl 0.1 Mg Tablet PO 0.1 mg TID PRN Administration anxiety/opiate withdrawl Protocol Cyclobenzaprine HCl 5 mg 12/14/19 05:39 12/17/19 21:18 Cyclobenzaprine Hcl 5 Mg Tablet PO 5 mg TID PRN Administration Muscle Spasm Hydroxyzine HCl 25 mg 12/14/19 05:39 12/16/19 12:08 Hydroxyzine Hcl 25 Mg Tablet PO 25 mg Q6H PRN Administration Opiate Withdrawal Hydroxyzine HCl 25 mg 12/18/19 09:00 Hydroxyzine Hcl 25 Mg Tablet PO TID TONY Loperamide HCl 4 mg 12/14/19 14:15 12/15/19 21:13 Loperamide Hcl 2 Mg Capsule PO 4 mg Q4H PRN Administration Diarrhea Lorazepam 0.5 mg 12/15/19 13:56 Lorazepam 1 Mg Tablet PO 12/18/19 07:28 Q6H PRN alcohol withdrawl/severe anxiety Taper Lorazepam 0.5 mg 12/18/19 09:00 Lorazepam 1 Mg Tablet PO BID TONY Magnesium Hydroxide 30 ml 12/13/19 23:23 Milk Of Magnesia 30 Ml Oral.Susp PO DAILY PRN Constipation Naloxone HCl 4 mg 12/16/19 09:25 Naloxone Hcl Nasal 4 Mg [place] NOSTRILALT ONCE PRN opioid overdose Nicotine Polacrilex 4 mg 12/14/19 05:39 Nicotine Polacrilex 2 Mg Gum BUCCAL Q2H PRN Nicotine Cravings Quetiapine Fumarate 100 mg 12/15/19 21:00 12/17/19 21:07 Quetiapine Fumarate 50 Mg Tablet PO 100 mg BEDTIME MRX1 TONY Administration Sertraline HCl 50 mg 12/15/19 09:00 12/17/19 08:40 Sertraline Hcl 50 Mg Tablet PO 50 mg DAILY TONY Administration Trazodone HCl 100 mg 12/15/19 13:48 12/16/19 22:26 Trazodone Hcl 50 Mg Tablet PO 100 mg BEDTIME MRX1 PRN Administration Insomnia Allergies Allergies Allergy/AdvReac Type Severity Reaction Status Date / Time No Known Allergies Allergy Unverified 11/01/19 14:54 Assessment & Plan Assessment & Plan (1) Opioid use disorder, severe, in controlled environment: Status: Acute Code(s): F11.20 - Opioid dependence, uncomplicated Assessment and Plan: taper clonidine on suboxone now 12m seems to holding Decrease Loraz. Increase Zoloft (2) Alcohol use disorder, severe, dependence: Status: Acute Code(s): F10.20 - Alcohol dependence, uncomplicated Assessment and Plan: taper down on lorazepam. Refer to [facility] (3) Depression: Status: Acute Code(s): F32.9 - Major depressive disorder, single episode, unspecified Assessment and Plan: Ct sertraline (4) Suicidal ideation: Status: Acute Code(s): R45.851 - Suicidal ideations Assessment and Plan: mony and groups , monitor Greater than 50% of the session was spent on counseling and/or coordination of care
[2019-12-18 06:15] VITALS: BP 98/55; PULSE 71; RESP 18; TEMP 36.8
[2019-12-18] MEDS: Sertraline HCL 50 MG TABLET PO (08:54)
[2019-12-18] MEDS: hydrOXYzine HCL 25 MG TABLET PO ×3 (08:56→21:10)
[2019-12-18] MEDS: LORazepam 1 MG TABLET 0.5 MG PO (08:56)
[2019-12-18] MEDS: Buprenorphine/Naloxone 12/3 mg FILM 1 FILM SUBLINGUAL (08:58)
[2019-12-18 09:34] VITALS: BP 98/55; PULSE 71
[2019-12-18] MEDS: cloNIDine HCL 0.1 MG TABLET PO ×2 (09:34→16:09)
[2019-12-18] MEDS: Cyclobenzaprine HCl 5 MG TABLET PO (09:36)
[2019-12-18 16:09] VITALS: BP 109/73; PULSE 88
[2019-12-18 16:26] VITALS: BP 109/73; PULSE 88; TEMP 37.2
[2019-12-18 16:27] VITALS: BP 109/73; PULSE 88; TEMP 37.2
[2019-12-18] MEDS: Nicotine Polacrilex 2 MG GUM 4 MG BUCCAL (18:30)
[2019-12-18] MEDS: traZODone HCL 50 MG TABLET 100 MG PO (21:10)
[2019-12-18] MEDS: QUEtiapine Fumarate 50 MG TABLET 100 MG PO (21:10)
[2019-12-18] MEDS: LORazepam 0.5 MG TABLET PO (21:10)
[2019-12-19 06:10] VITALS: BP 100/61; PULSE 73; RESP 18; TEMP 36.6
--- NOTE | 2019-12-19 06:37 | HO.PSYCHPN ---
Subjective Subjective Reason For Visit: CRISIS/DEPRESSION/SI Interim History: Mood better. No SI. Hopeful and motivated. Suboxone helpful. Encouraged to consider CSS. Decreased doses of Lorazepam. WD Sx resolving. Decreased cravings Mental Status Exam Mental Status Exam Narrative: more kempt today, better eye contact less restricted- no diaphoresis Patient Appearance: Well Grooomed Patient Orientation: Person, Place, Time and Situation Level of Consciousness: Awake and Appropriate Patient Behavior: Appropriate Mood Description: Anxious Affect Description: Calm (full range) Patient Cognition Impaired: No Ability to Follow Directions: Good Speech Pattern: Clear Diagnostics Vital Signs (24Hr): Vital Signs - 24 hr 12/18/19 09:34 12/18/19 16:09 12/18/19 16:26 Temperature 98.9 F Pulse Rate 71 88 88 Respiratory Rate Blood Pressure 98/55 L 109/73 109/73 12/18/19 16:27 12/19/19 06:10 Temperature 98.9 F 97.9 F Pulse Rate 88 73 Respiratory Rate 18 Blood Pressure 109/73 100/61 Body Mass Index 25.1 Labs Results: 12/13/19 14:04 12/13/19 14:04 Medications Medications Current Medications Generic Name Dose Route Start Last Admin Trade Name Freq PRN Reason Stop Dose Admin Acetaminophen 650 mg 12/14/19 05:39 12/17/19 16:06 Acetaminophen 325 Mg Tablet PO 650 mg Q6H PRN Administration Headache/Pain Mild Scale (1-3) Al Hydroxide/Mg Hydroxide 30 ml 12/13/19 23:23 Magnesium Hydrox/Alum Hydrox 30 Ml Oral.Susp PO Q6H PRN Heartburn/Nausea Buprenorphine/Naloxone 1 film 12/17/19 09:00 12/18/19 08:58 Buprenorphine/Naloxone 12/3 Mg Film SUBLINGUAL 1 film DAILY TONY Administration Clonidine HCl 0.1 mg 12/15/19 13:48 12/18/19 16:09 Clonidine Hcl 0.1 Mg Tablet PO 0.1 mg TID PRN Administration anxiety/opiate withdrawl Protocol Cyclobenzaprine HCl 5 mg 12/14/19 05:39 12/18/19 09:36 Cyclobenzaprine Hcl 5 Mg Tablet PO 5 mg TID PRN Administration Muscle Spasm Hydroxyzine HCl 25 mg 12/14/19 05:39 12/16/19 12:08 Hydroxyzine Hcl 25 Mg Tablet PO 25 mg Q6H PRN Administration Opiate Withdrawal Hydroxyzine HCl 25 mg 12/18/19 09:00 12/18/19 21:10 Hydroxyzine Hcl 25 Mg Tablet PO 25 mg TID TONY Administration Loperamide HCl 4 mg 12/14/19 14:15 12/15/19 21:13 Loperamide Hcl 2 Mg Capsule PO 4 mg Q4H PRN Administration Diarrhea Lorazepam 0.5 mg 12/18/19 21:00 12/18/19 21:10 Lorazepam 0.5 Mg Tablet PO 0.5 mg BID TONY Administration Magnesium Hydroxide 30 ml 12/13/19 23:23 Milk Of Magnesia 30 Ml Oral.Susp PO DAILY PRN Constipation Naloxone HCl 4 mg 12/16/19 09:25 Naloxone Hcl Nasal 4 Mg [place] NOSTRILALT ONCE PRN opioid overdose Nicotine Polacrilex 4 mg 12/14/19 05:39 12/18/19 18:30 Nicotine Polacrilex 2 Mg Gum BUCCAL 4 mg Q2H PRN Administration Nicotine Cravings Quetiapine Fumarate 100 mg 12/15/19 21:00 12/19/19 04:01 Quetiapine Fumarate 50 Mg Tablet PO Not Given BEDTIME MRX1 TONY Sertraline HCl 100 mg 12/19/19 09:00 Sertraline Hcl 50 Mg Tablet PO DAILY TONY Trazodone HCl 100 mg 12/15/19 13:48 12/18/19 21:10 Trazodone Hcl 50 Mg Tablet PO 100 mg BEDTIME MRX1 PRN Administration Insomnia Allergies Allergies Allergy/AdvReac Type Severity Reaction Status Date / Time No Known Allergies Allergy Unverified 11/01/19 14:54 Assessment & Plan Assessment & Plan (1) Opioid use disorder, severe, in controlled environment: Status: Acute Code(s): F11.20 - Opioid dependence, uncomplicated Assessment and Plan: taper clonidine on suboxone now 12m seems to holding Decrease Loraz. Increase Zoloft (2) Alcohol use disorder, severe, dependence: Status: Acute Code(s): F10.20 - Alcohol dependence, uncomplicated Assessment and Plan: taper down on lorazepam. Refer to [facility] (3) Depression: Status: Acute Code(s): F32.9 - Major depressive disorder, single episode, unspecified Assessment and Plan: Ct sertraline (4) Suicidal ideation: Status: Acute Code(s): R45.851 - Suicidal ideations Assessment and Plan: mony and david monitor Greater than 50% of the session was spent on counseling and/or coordination of care
[2019-12-19 07:26] LABS: Hepatitis A Antibody IgM 0.26 Index (0-0.79); ~Hepatitis A Antibody IgM Nonreactive (Nonreactive)
[2019-12-19] MEDS: Sertraline HCL 50 MG TABLET 100 MG PO (08:51)
[2019-12-19] MEDS: LORazepam 0.5 MG TABLET PO ×2 (08:52→21:18)
[2019-12-19] MEDS: Buprenorphine/Naloxone 12/3 mg FILM 1 FILM SUBLINGUAL (08:52)
[2019-12-19] MEDS: hydrOXYzine HCL 25 MG TABLET PO ×3 (08:52→21:19)
[2019-12-19] MEDS: NaPROXEN 500 MG TABLET PO ×2 (09:44→21:18)
[2019-12-19 18:00] VITALS: BP 108/74; PULSE 76; TEMP 36.9
[2019-12-19] MEDS: traZODone HCL 50 MG TABLET 100 MG PO (21:18)
[2019-12-19] MEDS: QUEtiapine Fumarate 50 MG TABLET 100 MG PO (21:18)
[2019-12-20 06:23] VITALS: BP 96/53; PULSE 67; RESP 14; TEMP 36.8; O2SAT 97
[2019-12-20 07:00] VITALS: BMI 23.8
--- NOTE | 2019-12-20 07:28 | P.PNPSI_ITS ---
Subjective Subjective Reason For Visit: CRISIS/DEPRESSION/SI Interim History: Mood better. No SI. Hopeful and motivated. Suboxone helpful. Encouraged to consider CSS. Decreased doses of Lorazepam. WD Sx resolving. Decreased cravings . Steady improvement in Sx. Loraz will be DCd. Review of Systems Review of Systems Yes all other systems are reviewed and are negative Mental Status Exam Mental Status Exam Narrative: more kempt today, better eye contact less restricted- no diaphoresis Patient Appearance: Well Grooomed Patient Orientation: Person, Place, Time and Situation Level of Consciousness: Awake and Appropriate Patient Behavior: Appropriate Mood Description: Anxious Affect Description: Calm (full range) Patient Cognition Impaired: No Ability to Follow Directions: Good Speech Pattern: Clear Diagnostics Vital Signs (24Hr): Vital Signs - 24 hr 12/19/19 18:00 12/20/19 06:23 Temperature 98.4 F 98.2 F Pulse Rate 76 67 Respiratory Rate 14 Blood Pressure 108/74 96/53 L Pulse Oximetry 97 Body Mass Index 25.1 Labs Results: 12/13/19 14:04 12/13/19 14:04 Labs: Laboratory Results - last 48 hr 12/15/19 13:57 Hepatitis A IgM Ab Nonreactive Medications Medications Current Medications Generic Name Dose Route Start Last Admin Trade Name Freq PRN Reason Stop Dose Admin Acetaminophen 650 mg 12/14/19 05:39 12/17/19 16:06 Acetaminophen 325 Mg Tablet PO 650 mg Q6H PRN Administration Headache/Pain Mild Scale (1-3) Al Hydroxide/Mg Hydroxide 30 ml 12/13/19 23:23 Magnesium Hydrox/Alum Hydrox 30 Ml Oral.Susp PO Q6H PRN Heartburn/Nausea Buprenorphine/Naloxone 1 film 12/17/19 09:00 12/19/19 08:52 Buprenorphine/Naloxone 12/3 Mg Film SUBLINGUAL 1 film DAILY TONY Administration Clonidine HCl 0.1 mg 12/15/19 13:48 12/18/19 16:09 Clonidine Hcl 0.1 Mg Tablet PO 0.1 mg TID PRN Administration anxiety/opiate withdrawl Protocol Cyclobenzaprine HCl 5 mg 12/14/19 05:39 12/18/19 09:36 Cyclobenzaprine Hcl 5 Mg Tablet PO 5 mg TID PRN Administration Muscle Spasm Hydroxyzine HCl 25 mg 12/14/19 05:39 12/16/19 12:08 Hydroxyzine Hcl 25 Mg Tablet PO 25 mg Q6H PRN Administration Opiate Withdrawal Hydroxyzine HCl 25 mg 12/18/19 09:00 12/19/19 21:19 Hydroxyzine Hcl 25 Mg Tablet PO 25 mg TID TONY Administration Loperamide HCl 4 mg 12/14/19 14:15 12/15/19 21:13 Loperamide Hcl 2 Mg Capsule PO 4 mg Q4H PRN Administration Diarrhea Lorazepam 0.5 mg 12/18/19 21:00 12/19/19 21:18 Lorazepam 0.5 Mg Tablet PO 0.5 mg BID TONY Administration Magnesium Hydroxide 30 ml 12/13/19 23:23 Milk Of Magnesia 30 Ml Oral.Susp PO DAILY PRN Constipation Naloxone HCl 4 mg 12/16/19 09:25 Naloxone Hcl Nasal 4 Mg [place] NOSTRILALT ONCE PRN opioid overdose Naproxen 500 mg 12/19/19 09:12 12/19/19 21:18 Naproxen 500 Mg Tablet PO 500 mg BID PRN Administration Pain, Moderate (Pain Scale 4-6 Nicotine Polacrilex 4 mg 12/14/19 05:39 12/18/19 18:30 Nicotine Polacrilex 2 Mg Gum BUCCAL 4 mg Q2H PRN Administration Nicotine Cravings Quetiapine Fumarate 100 mg 12/15/19 21:00 12/20/19 04:25 Quetiapine Fumarate 50 Mg Tablet PO Not Given BEDTIME MRX1 TONY Sertraline HCl 100 mg 12/19/19 09:00 12/19/19 08:51 Sertraline Hcl 50 Mg Tablet PO 100 mg DAILY TONY Administration Trazodone HCl 100 mg 12/15/19 13:48 12/19/19 21:18 Trazodone Hcl 50 Mg Tablet PO 100 mg BEDTIME MRX1 PRN Administration Insomnia Allergies Allergies Allergy/AdvReac Type Severity Reaction Status Date / Time No Known Allergies Allergy Unverified 11/01/19 14:54 Assessment & Plan Assessment & Plan (1) Opioid use disorder, severe, in controlled environment: Status: Acute Code(s): F11.20 - Opioid dependence, uncomplicated Assessment and Plan: taper clonidine on suboxone now 12m seems to holding Decrease Loraz. Increase Zoloft (2) Alcohol use disorder, severe, dependence: Status: Acute Code(s): F10.20 - Alcohol dependence, uncomplicated Assessment and Plan: taper down on lorazepam. Refer to [facility] (3) Depression: Status: Acute Code(s): F32.9 - Major depressive disorder, single episode, unspecified Assessment and Plan: Ct sertraline (4) Suicidal ideation: Status: Acute Code(s): R45.851 - Suicidal ideations Assessment and Plan: milvignesh and groups , monitor Greater than 50% of the session was spent on counseling and/or coordination of care
[2019-12-20 08:24] LABS: Cholesterol 162 mg/dL; Glucose Fasting 102 mg/dL (60-99); HDL Cholesterol 49 mg/dL; LDL Cholesterol Calculated 86 mg/dl; Triglycerides 137 mg/dL
[2019-12-20] MEDS: Sertraline HCL 50 MG TABLET 100 MG PO (09:03)
[2019-12-20] MEDS: Buprenorphine/Naloxone 12/3 mg FILM 1 FILM SUBLINGUAL (09:04)
[2019-12-20] MEDS: NaPROXEN 500 MG TABLET PO ×2 (09:18→20:43)
[2019-12-20] MEDS: LORazepam 0.5 MG TABLET PO (20:43)
[2019-12-20] MEDS: QUEtiapine Fumarate 50 MG TABLET 100 MG PO (20:43)
[2019-12-20] MEDS: traZODone HCL 50 MG TABLET 100 MG PO (20:43)
[2019-12-20] MEDS: Milk of Magnesia 30 ML ORAL.SUSP PO (20:44)
[2019-12-20 20:46] VITALS: BP 116/71; PULSE 74; TEMP 36.9
[2019-12-21 06:00] VITALS: BP 110/64; PULSE 77; TEMP 36.9
--- NOTE | 2019-12-21 08:48 | P.DS_ITS ---
DS: Providers Provider Date of admission: 12/13/19 23:23 Primary care physician: Clare Krishna MD DS: Diagnosis Discharge Diagnosis (1) Opioid use disorder, severe, in controlled environment: Status: Acute (2) Alcohol use disorder, severe, dependence: Status: Acute (3) Depression: Status: Acute (4) Suicidal ideation: Status: Acute Discharge Plan Discharge Patient Disposition: Home, Self-Care Referrals: [facility] intake [Other] [facility] [Other] (Go in person for help with ID, SSI, DTA, etc.) Sugey Walton high risk case manager [Other] (Call for support with referrals, community issues/support) [facility] (Suboxone) [Other] - 12/27/19 3:00 pm [facility] intake [Other] Carlos Tavarez therapist [Other] - 12/25/19 4:00 pm (Telehealth) Clare Krishna MD [Primary Care Provider] - (Office closed today. Pt. will contact office during business hours.) Diomedes, PÉREZC [Nurse Practitioner] - 01/16/20 9:15 am Farhat Aldridge MD [Physician] - 01/31/20 10:00 am Dhaval Valenzuela NP [Referring] - 01/11/20 9:00 am (Telehealth) Discharge Medications: New clonidine HCl 0.1 mg Tablet 0.1 mg PO TID PRN (Reason: anxiety) 30 Days RF: 1 hydroxyzine HCl 25 mg Tablet 25 mg PO Q6H PRN (Reason: Opiate Withdrawal) 30 Days Qty: 60 RF: 1 Narcan 4 mg/actuation [place],Non-Aerosol 4 mg intranasal (ALT) ONCE PRN (Reason: opioid overdose) 1 Days Qty: 2 RF: 0 trazodone 50 mg Tablet 100 mg PO BEDTIME MRX1 PRN (Reason: Insomnia) 30 Days Qty: 30 RF: 1 sertraline 50 mg Tablet 100 mg PO DAILY 30 Days Qty: 60 RF: 1 naproxen 500 mg Tablet 500 mg PO BID PRN (Reason: Pain, Moderate (Pain Scale 4-6) 30 Days Qty: 60 RF: 1 buprenorphine-naloxone [Suboxone] 8-2 mg film 1 film buccal DAILY Qty: 6 RF: 0 buprenorphine-naloxone [Suboxone] 4-1 mg film 1 film sublingual DAILY Qty: 6 RF: 0 quetiapine [Seroquel] 100 mg tablet 100 mg PO BEDTIME 30 Days Qty: 30 RF: 0 Discontinued bupropion HCl 300 mg tablet extended release 24 hr 1 tab PO DAILY RF: 0 Discharge Orders: Discharge Order (Routine); Ordered 12/21/19 Ordered By: Freddie Solis Diet: advance to your usual diet Activity on Discharge: As tolerated Stand Alone Forms: Community Support Discharge Date/Time: 12/21/19 13:45 Visit Report Forms: Patient Portal Discharge page Care Plan Goals: Maintain sobriety Improve mood No suicidal behavior Health Concerns: low mood ETOH and opioid use Hep C Plan of Treatment: CSS Med Mx Therapy Hep C treatment with GI Ortho referral for shoulder deformity Data Data Completed and Pending Completed studies during hospitalization [Text1]: 12/15/19 12/15/19 12/20/19 13:57 13:57 07:45 Fasting Glucose 102 H Triglycerides 137 Cholesterol 162 LDL Cholesterol, Calc 86 HDL Cholesterol 49 Hepatitis A IgM Ab Nonreactive Hep Bs Antigen Negative Hep Bs Antibody REACTIVE Hep B Core Total Ab Nonreactive Hepatitis C Ab (EIA) Reactive H HIV 1&2 Ab/P24 Ag 4thGn Nonreactive DS: Summary Hospital Course Hospital Course: 5 MWM, presents with significant SI, Depression and SI. Self presented after trying to bleed out and X self cuts. He was trying out different methods of ending his life before the big one . Noted for HHW, tearfulness, anhedonia, sad moodmed non compliance and significant relapse on ETOH and daily heroin use. Housing is stable but everyone around me uses drugs . No bipolar or psychosis, OCD, STACEY or other major syndromes DOC is ETOH and Opioid use: X detoxs and ex-Prov Methadone clinic in 2016. Early onset use.Now highly motivated for abstinence. X consequences of drug use: leg al, friends, introduced him to heroin, IVDA Pt was noted for Opioid and ETOH WD for a few days. Received Scheduled Lorazepam that was eventually tapered. Was started and optimized on Suboxone which he found very helpful. No cravings reported. ETOH resolved too. Pt was highly motivated and worked w SW to apply for CSS . A bed was not available, hence will go to own place then CSS. Educated re Suboxone use/interactions. Pt was referred to Ortho for shoulder deformity and GI for Hep C treatment (as an outpt). Was started on Zoloft and Seroquel . Tolerated well. Much improved at DC. Time spent discussing smoking cessation with patient: more than 10 minutes Status at Discharge Functional status at discharge: independent ambulation Overall status at discharge: patient is progressing back to baseline Time Spent with Patient Time attestation: Total time spent providing and/or coordinating discharge services:
[2019-12-21] MEDS: Sertraline HCL 50 MG TABLET 100 MG PO (09:37)
[2019-12-21] MEDS: Buprenorphine/Naloxone 12/3 mg FILM 1 FILM SUBLINGUAL (09:37)
== END 2019-12-21 13:45 | disposition home or self-care (01) | DRG 754 ==
LOC: HO.ED 23:25 → HO.PM5 23:57
PROVIDERS: Nurse Practitioner Primary Care; Admitting Provider Psychiatry & Neurology Psychiatry; Emergency Provider Emergency Medicine; PCP Internal Medicine; Visit Provider Psychiatry & Neurology Psychiatry
DX: F32.9 Major depressive disorder, single episode, unspecified (principal); R45.851 Suicidal ideations; F11.23 Opioid dependence with withdrawal; F10.239 Alcohol dependence with withdrawal, unspecified; F17.210 Nicotine dependence, cigarettes, uncomplicated; Z20.828 Contact with and (suspected) exposure to other viral communicable diseases; Z71.6 Tobacco abuse counseling; Z91.5 Personal history of self-harm; Z79.1 Long term (current) use of non-steroidal anti-inflammatories (NSAID); Z79.899 Other long term (current) drug therapy
CPT/HCPCS: 36415; 80053; 80061; 80076; 80307; 80320; 82248; 82947; 85025; 86704; 86706; 86709; 86803; 87340; 87389; 99223; 99232; 99239; 99285; G0480; J0573; J0574; J0575; U0003

== ENCOUNTER → 2019-12-27 13:16 | Outpatient (BNVA) | payer OTHER, SELFPAY | PROVIDERS: Visit Provider Nurse Practitioner Psychiatric/Mental Health | DX: F11.20 Opioid dependence, uncomplicated (principal) | CPT/HCPCS: 80305; 99202; 99211; 99212 ==

== ENCOUNTER → 2020-01-01 11:39 | Outpatient (BNVA) | payer OTHER, SELFPAY | PROVIDERS: Visit Provider Nurse Practitioner Psychiatric/Mental Health | DX: F11.20 Opioid dependence, uncomplicated (principal) | CPT/HCPCS: 99211 ==

== ENCOUNTER → 2020-01-03 11:46 | Outpatient (BNVA) | payer OTHER, SELFPAY | PROVIDERS: Visit Provider Nurse Practitioner Psychiatric/Mental Health | DX: F11.20 Opioid dependence, uncomplicated (principal) | CPT/HCPCS: 99212 ==

== ENCOUNTER → 2020-01-17 09:50 | Outpatient (BNVA) | payer OTHER, SELFPAY | PROVIDERS: PCP Internal Medicine; Visit Provider Nurse Practitioner Psychiatric/Mental Health | DX: F11.20 Opioid dependence, uncomplicated (principal) | CPT/HCPCS: 80305; 99212 ==

== ENCOUNTER → 2020-01-24 11:43 | Outpatient (BNVA) | payer OTHER, SELFPAY | PROVIDERS: Visit Provider Nurse Practitioner Psychiatric/Mental Health | DX: Z76.89 Persons encountering health services in other specified circumstances (principal) ==

== ENCOUNTER → 2020-01-31 14:51 | Outpatient (BNVA) | payer OTHER, SELFPAY | PROVIDERS: Visit Provider Nurse Practitioner Psychiatric/Mental Health | DX: Z76.89 Persons encountering health services in other specified circumstances (principal) ==

== ENCOUNTER → 2020-02-05 14:21 | Outpatient (BNVA) | payer OTHER, SELFPAY | PROVIDERS: PCP Internal Medicine; Visit Provider Nurse Practitioner | DX: Z76.89 Persons encountering health services in other specified circumstances (principal) ==

== ENCOUNTER → 2020-02-07 13:18 | Outpatient (BNVA) | payer OTHER, SELFPAY | PROVIDERS: Visit Provider Nurse Practitioner Psychiatric/Mental Health | DX: Z76.89 Persons encountering health services in other specified circumstances (principal) ==

== ENCOUNTER 2020-02-14 08:39 | Outpatient (REF) | payer OTHER, SELFPAY ==
--- NOTE | 2020-02-14 10:26 | XR_ITS ---
EXAMINATION: XR shoulder RT min 2V, XR shoulder LT min 2V CLINICAL INFORMATION: Shoulder pain. COMPARISON: Right shoulder dated 08/07/19. TECHNIQUE: Right shoulder 3 views. Left shoulder 3 views. FINDINGS: RIGHT SHOULDER: There is nonunion of the fracture through the distal extent of the clavicle. The proximal fragment is distracted superiorly with a large fracture gap. Alignment of the acromioclavicular joint is maintained. The comminuted fracture of the body of the scapula is not well assessed on these views. Glenohumeral alignment is normal. No new abnormality is demonstrated. LEFT SHOULDER: 3 views of the left shoulder are unremarkable. No fracture or other bony abnormality demonstrated. Alignment of the acromioclavicular and glenohumeral joints is normal. XR/XR shoulder RT min 2V IMPRESSION: Nonunion of distal right clavicular fracture. Right scapular fracture not well assessed. Specific scapular views would be helpful in further assessment. Unremarkable appearance of the left shoulder.
--- NOTE | 2020-02-14 10:38 | XR_ITS ---
EXAMINATION: XR shoulder RT min 2V, XR shoulder LT min 2V CLINICAL INFORMATION: Shoulder pain. COMPARISON: Right shoulder dated 08/07/19. TECHNIQUE: Right shoulder 3 views. Left shoulder 3 views. FINDINGS: RIGHT SHOULDER: There is nonunion of the fracture through the distal extent of the clavicle. The proximal fragment is distracted superiorly with a large fracture gap. Alignment of the acromioclavicular joint is maintained. The comminuted fracture of the body of the scapula is not well assessed on these views. Glenohumeral alignment is normal. No new abnormality is demonstrated. LEFT SHOULDER: 3 views of the left shoulder are unremarkable. No fracture or other bony abnormality demonstrated. Alignment of the acromioclavicular and glenohumeral joints is normal. XR/XR shoulder LT min 2V IMPRESSION: Nonunion of distal right clavicular fracture. Right scapular fracture not well assessed. Specific scapular views would be helpful in further assessment. Unremarkable appearance of the left shoulder.
== END 2020-02-14 08:40 | disposition home or self-care (01) ==
LOC: HO.HOSX 08:39
PROVIDERS: Visit Provider Orthopaedic Surgery
DX: F11.20 Opioid dependence, uncomplicated (principal); M25.512 Pain in left shoulder; M25.511 Pain in right shoulder
CPT/HCPCS: 73030; 99202

== ENCOUNTER → 2020-02-22 13:27 | Outpatient (BNVA) | payer OTHER, SELFPAY | PROVIDERS: PCP Internal Medicine; Visit Provider Nurse Practitioner Psychiatric/Mental Health | DX: Z76.89 Persons encountering health services in other specified circumstances (principal) ==

== ENCOUNTER → 2020-02-28 14:48 | Outpatient (BNVA) | payer OTHER, SELFPAY | PROVIDERS: Visit Provider Nurse Practitioner Psychiatric/Mental Health | DX: Z76.89 Persons encountering health services in other specified circumstances (principal) ==

== ENCOUNTER → 2020-03-05 13:31 | Outpatient (BNVA) | payer OTHER, SELFPAY | PROVIDERS: Visit Provider Nurse Practitioner ==

== ENCOUNTER → 2020-03-13 14:04 | Outpatient (BNVA) | payer OTHER, SELFPAY | PROVIDERS: Visit Provider Nurse Practitioner Psychiatric/Mental Health ==

== ENCOUNTER → 2020-03-20 13:53 | Outpatient (BNVA) | payer OTHER, SELFPAY | PROVIDERS: Visit Provider Nurse Practitioner Psychiatric/Mental Health ==

== ENCOUNTER → 2020-03-27 09:32 | Outpatient (BNVA) | payer OTHER, SELFPAY | PROVIDERS: Visit Provider Nurse Practitioner Psychiatric/Mental Health ==

== ENCOUNTER → 2020-04-10 10:21 | Outpatient (BNVA) | payer OTHER, SELFPAY | PROVIDERS: Visit Provider Nurse Practitioner Psychiatric/Mental Health ==

== ENCOUNTER → 2020-04-24 10:27 | Outpatient (BNVA) | payer OTHER, SELFPAY | PROVIDERS: Visit Provider Nurse Practitioner Psychiatric/Mental Health | DX: Z13.89 Encounter for screening for other disorder (principal) | CPT/HCPCS: 99211 ==

== ENCOUNTER → 2020-05-08 10:07 | Outpatient (BNVA) | payer OTHER, SELFPAY | PROVIDERS: Visit Provider Nurse Practitioner Psychiatric/Mental Health | DX: F11.20 Opioid dependence, uncomplicated (principal) | CPT/HCPCS: 99211 ==

== ENCOUNTER → 2020-05-22 10:35 | Outpatient (BNVA) | payer OTHER, SELFPAY | PROVIDERS: Visit Provider Nurse Practitioner Psychiatric/Mental Health ==

== ENCOUNTER → 2020-06-12 11:01 | Outpatient (BNVA) | payer OTHER, SELFPAY | PROVIDERS: Visit Provider Nurse Practitioner Psychiatric/Mental Health | DX: F11.20 Opioid dependence, uncomplicated (principal) | CPT/HCPCS: 80305; 99212 ==

== ENCOUNTER 2020-06-21 20:03 | Emergency (ER) | payer OTHER, SELFPAY ==
--- NOTE | ~2020-06-21 | XR_ITS ---
EXAMINATION: XR CHEST CLINICAL INFORMATION: Cough COMPARISON: CTA chest dated 08/07/2019 TECHNIQUE: Frontal view of the chest was obtained. FINDINGS: No significant abnormality is noted involving the heart, lungs, mediastinum, bony thorax or soft tissues. XR/XR chest 1V IMPRESSION: Unremarkable examination.
[2020-06-21 20:16] VITALS: BP 126/73; BP 130/71; PULSE 65; PULSE 84; RESP 12; TEMP 36.9; O2SAT 96; O2SAT 97; BMI 31.4
[2020-06-21 20:23] VITALS: O2SAT 96
[2020-06-21 21:00] VITALS: PULSE 95; RESP 6; O2SAT 97
--- NOTE | 2020-06-21 21:02 | PC.NURSE ---
PLACED ON 2L O2 FOR SPO2 89% ON RA WHILE SLEEPING & BRADYPNEIC
[2020-06-21 21:33] VITALS: PULSE 94; RESP 12; O2SAT 98
--- NOTE | 2020-06-21 21:49 | ED_ITS ---
HPI - Overdose General Chief Complaint: Overdose Stated Complaint: overdose Time Seen by Provider: 06/21/20 21:16 Source: patient Mode of arrival: EMS History of Present Illness HPI Narrative: 44-year-old male brought in by EMS after being found unresponsive and provided Narcan by police department, patient required BVM for 4 minutes on scene. On arrival he was noted to be alert and oriented x3 as per nursing documentation, diaphoretic. At the time that I interviewed the patient he states that he has been sober for 5 months and then has been using over the past couple of days. He endorses that he used 2 bags today and denies any suicidal intent with the use of this. Related Data Previous Rx's Medication Instructions Recorded clonidine HCl 0.1 mg PO TID PRN 30 Days tab 12/21/19 hydroxyzine HCl 25 mg PO Q6H PRN 30 Days #60 tab 12/21/19 naloxone [Narcan] 4 mg INTRANASAL (ALT) ONCE PRN 1 12/21/19 Days #2 ea naproxen 500 mg PO BID PRN 30 Days #60 tab 12/21/19 quetiapine [Seroquel] 100 mg PO BEDTIME 30 Days #30 tab 12/21/19 sertraline 100 mg PO DAILY 30 Days #60 tab 12/21/19 trazodone 100 mg PO BEDTIME MRX1 PRN 30 Days 12/21/19 #30 tab buprenorphine 4 mg-naloxone 1 mg 1 film SUBLINGUAL DAILY #14 ea 06/18/20 sublingual film buprenorphine 8 mg-naloxone 2 mg 1 film SUBLINGUAL DAILY #14 ea 06/18/20 sublingual film Allergies Allergy/AdvReac Type Severity Reaction Status Date / Time No Known Allergies Allergy Verified 06/21/20 20:23 Review of Systems Review of Systems: Pertinent positives and negatives as stated in HPI 10 point review of systems is otherwise negative. [facility], LAT[facility] Past Medical History Source: nursing notes reviewed Medical History Bilateral shoulder bursitis Hepatitis C Sepsis Substance abuse Family History Family History Father Lung cancer Throat cancer Mother Stomach cancer Paternal Grandfather Myocardial infarction Social History Social History Household Members: Other Household Members Other:: lives in half way house Housing: Apartment Alcohol intake: current Alcohol intake frequency: does not drink Smoking Status: Current every day smoker Tobacco Type: Cigarette Packs Per Day: 0.5 Cigarettes Per Day: 10.0 Years Smoked: 24 Smoked in Last 30 Days: Yes Second Hand Smoke Exposure: Yes Use of substances other than those prescribed or required for medical reasons: Yes Substance Use Type: Crack/Cocaine and Heroin Substance Use Frequency: Daily Substance Use Frequency Other:: SINCE DEPARTURE FROM DETOX 6 DAYS AGO, CURRENTLY ON BUP/NAL Any prior treatment program specific to substance use: Yes Advance Directives: No Advance Directives Information Provided: No service: No Sexual orientation: Straight/Heterosexual Physical Exam Vital Signs: Vital Signs: Last Vital Signs Temp 98.4 F 06/21/20 20:16 Pulse 88 06/21/20 22:55 Resp 12 06/21/20 22:55 BP 126/73 06/21/20 20:16 Pulse Ox 92 06/22/20 01:06 Body Mass Index 31.4 VITAL SIGNS: Reviewed. GENERAL: Well developed, well nourished, in no acute distress. HEAD: Normocephalic/atraumatic EYES: PERRLA, EOMI EARS: Ext canals without abnormality NOSE: Nares patent bilateral OROPHARYNX: no oral lesions noted, posterior pharynx clear NECK: Supple, no adenopathy LUNGS: Normal breath sounds. No adventitious sounds or accessory muscle use. Slow respirations. SpO2<98> CARDIOVASCULAR: Regular rate and rhythm without noted murmurs ABDOMEN: Soft, non-tender, non-distended with bowel sounds. NEUROLOGIC: Drowsy/easily aroused and oriented x 4. Strength and sensation to light touch were grossly intact x 4. Course Course Course Narrative: 44-year-old male with history and clinical presentation consistent with accidental overdose with heroin. Noted to have significantly slow respirations although oxygenating well and currently on capnography. Decision was made to provide an additional 4 mg of Narcan intranasally and patient has responded well and is currently more alert and respirations have improved. Patient will be observed for the following 2 hours and likely be discharged. On re-evaluation patient states he is not feeling well and wants ?more time?. Chest x-ray and COVID-19 testing both negative for any acute findings. On re-evaluation patient is feeling better and has tolerated oral intake. He is discharged home in stable condition. Reevaluation(s) Reevaluation #1: Patient placed in physician observation because the patient needed more time for sobering and transportation. At the time observation was started the patient's vital signs were stable, patient is alert and oriented but slightly, neuro: Nonfocal, CV RRR, lungs clear MDM - Overdose Lab Data Labs: Lab Results 06/22/20 Range/Units 02:55 COVID-19 (DEJON) Negative (Negative) COVID-19 Clin Com See Note Discharge Plan Discharge Clinical Impression: Overdose Patient Disposition: Home, Self-Care Instructions: Adult Overdose (ED) Additional Instructions: To the emergency department for any acute worsening of your symptoms. Prescriptions: No Action buprenorphine-naloxone [Suboxone] 4-1 mg film 1 film sublingual DAILY Qty: 14 RF: 0 buprenorphine-naloxone [Suboxone] 8-2 mg film 1 film sublingual DAILY Qty: 14 RF: 0 clonidine HCl 0.1 mg Tablet 0.1 mg PO TID PRN (Reason: anxiety) 30 Days RF: 1 hydroxyzine HCl 25 mg Tablet 25 mg PO Q6H PRN (Reason: Opiate Withdrawal) 30 Days Qty: 60 RF: 1 Narcan 4 mg/actuation [place],Non-Aerosol 4 mg intranasal (ALT) ONCE PRN (Reason: opioid overdose) 1 Days Qty: 2 RF: 0 trazodone 50 mg Tablet 100 mg PO BEDTIME MRX1 PRN (Reason: Insomnia) 30 Days Qty: 30 RF: 1 sertraline 50 mg Tablet 100 mg PO DAILY 30 Days Qty: 60 RF: 1 naproxen 500 mg Tablet 500 mg PO BID PRN (Reason: Pain, Moderate (Pain Scale 4-6) 30 Days Qty: 60 RF: 1 quetiapine [Seroquel] 100 mg tablet 100 mg PO BEDTIME 30 Days Qty: 30 RF: 0 Referrals: Physician,Unknown [Primary Care Provider] - 2 days
[2020-06-21 22:55] VITALS: PULSE 88; RESP 12; O2SAT 97
[2020-06-21] MEDS: Naloxone HCl Nasal 4 MG SPRAY NOSTRILALT (23:55)
[2020-06-22 00:17] VITALS: O2SAT 95
[2020-06-22 01:06] VITALS: O2SAT 92
[2020-06-22 03:24] LABS: COVID-19 Test Negative (Negative)
== END 2020-06-22 07:21 | disposition home or self-care (01) ==
PROVIDERS: Emergency Provider Student in an Organized Health Care Education/Training Program
DX: T40.1X1A Poisoning by heroin, accidental (unintentional), initial encounter (principal); R40.4 Transient alteration of awareness; Y92.9 Unspecified place or not applicable; F11.10 Opioid abuse, uncomplicated; B19.20 Unspecified viral hepatitis C without hepatic coma; F17.210 Nicotine dependence, cigarettes, uncomplicated
CPT/HCPCS: 36415; 71045; 87635; 99285

== ENCOUNTER → 2020-07-03 12:58 | Outpatient (BNVA) | payer OTHER, SELFPAY | PROVIDERS: Visit Provider Nurse Practitioner Psychiatric/Mental Health ==

== ENCOUNTER → 2020-07-10 13:36 | Outpatient (BNVA) | payer OTHER, SELFPAY | PROVIDERS: Visit Provider Nurse Practitioner Psychiatric/Mental Health ==

== ENCOUNTER → 2020-07-25 11:09 | Outpatient (BNVA) | payer OTHER, SELFPAY | PROVIDERS: Visit Provider Internal Medicine ==

== ENCOUNTER → 2020-08-07 11:35 | Outpatient (BNVA) | payer OTHER, SELFPAY | PROVIDERS: Visit Provider Nurse Practitioner Psychiatric/Mental Health | DX: F11.20 Opioid dependence, uncomplicated (principal) | CPT/HCPCS: 80305; 99212 ==

== ENCOUNTER → 2020-08-21 12:25 | Outpatient (BNVA) | payer OTHER, SELFPAY | PROVIDERS: Visit Provider Nurse Practitioner Psychiatric/Mental Health | DX: F11.20 Opioid dependence, uncomplicated (principal) | CPT/HCPCS: 80305; 99212 ==

== ENCOUNTER → 2020-08-28 14:46 | Outpatient (BNVA) | payer OTHER, SELFPAY | PROVIDERS: Visit Provider Nurse Practitioner Psychiatric/Mental Health | DX: F11.20 Opioid dependence, uncomplicated (principal); Z51.81 Encounter for therapeutic drug level monitoring; Z79.899 Other long term (current) drug therapy | CPT/HCPCS: 80305; 99212 ==

== ENCOUNTER → 2020-09-04 12:04 | Outpatient (BNVA) | payer OTHER, SELFPAY | PROVIDERS: Visit Provider Nurse Practitioner Psychiatric/Mental Health | DX: Z51.81 Encounter for therapeutic drug level monitoring (principal); F11.20 Opioid dependence, uncomplicated | CPT/HCPCS: 80305; 99212 ==

== ENCOUNTER 2020-09-25 11:52 | Outpatient (REF) | payer OTHER, SELFPAY ==
[2020-10-06 07:39] LABS: Buprenorphine NEGATIVE; Naloxone NEGATIVE; Norbuprenorphine NEGATIVE
== END 2020-09-25 11:53 | disposition home or self-care (01) ==
LOC: HO.LAB 11:52
PROVIDERS: Visit Provider Nurse Practitioner Psychiatric/Mental Health
DX: F11.20 Opioid dependence, uncomplicated (principal); F14.10 Cocaine abuse, uncomplicated; F17.210 Nicotine dependence, cigarettes, uncomplicated
CPT/HCPCS: 80305; 80348; 80362; 99212

== ENCOUNTER → 2020-10-02 10:44 | Outpatient (BNVA) | payer OTHER, SELFPAY | PROVIDERS: Visit Provider Nurse Practitioner Psychiatric/Mental Health | DX: F11.20 Opioid dependence, uncomplicated (principal); F14.10 Cocaine abuse, uncomplicated; Z51.81 Encounter for therapeutic drug level monitoring; Z79.899 Other long term (current) drug therapy | CPT/HCPCS: 80305; 99212 ==

== ENCOUNTER 2020-10-24 22:22 | Emergency (ER) | payer OTHER, SELFPAY ==
[2020-10-24 22:33] VITALS: BP 113/58; PULSE 79; RESP 18; TEMP 36.6; O2SAT 97; BMI 25.7
--- NOTE | 2020-10-24 22:47 | PC.NURSE ---
PT TO HALLWAY BED FROM EMS WITH ETOH INTOXICATION. PT SLEEPING, RESPIRATIONS EASY, N/L. SKIN W/D. VS OBTAINED. WILL CONTINUE TO MONITOR PT.
--- NOTE | 2020-10-24 23:47 | PC.NURSE ---
pt sleeping, wakes up and rolls over. VS obtained.
--- NOTE | 2020-10-25 01:37 | ED_ITS ---
HPI - Alcohol General Chief Complaint: ETOH/Substance Use <Ana Garcia NP - Last Filed: 10/25/20 01:40> Stated Complaint: ETOH <Ana Garcia NP - Last Filed: 10/25/20 01:40> Time Seen by Provider: 10/25/20 03:44 <Ana Garcia NP - Last Filed: 10/25/20 01:40> Source: patient and EMS <Ana Garcia NP - Last Filed: 10/25/20 01:40> Mode of arrival: EMS <Ana Garcia NP - Last Filed: 10/25/20 01:40> Limitations: altered mental status <Ana Garcia NP - Last Filed: 10/25/20 01:40> History of Present Illness HPI narrative: 44-year-old male presents via EMS for alcohol intoxication. <Ana Garcia NP - Last Filed: 10/25/20 01:40> MD complaint: alcohol intoxication <Ana Garcia NP - Last Filed: 10/25/20 01:40> Last drink: Hours (ago) (Within the hour of arrival) <Ana Garcia NP - Last Filed: 10/25/20 01:40> Chronic alcohol use: Yes <Ana Garcia NP - Last Filed: 10/25/20 01:40> Previous visits for alcohol intoxication: Yes <Ana Garcia NP - Last Filed: 10/25/20 01:40> Recent trauma: No <Ana Garcia NP - Last Filed: 10/25/20 01:40> Associated symptoms: denies other symptoms <Ana Garcia NP - Last Filed: 10/25/20 01:40> Related Data Home Medications: Previous Rx's Medication Instructions Recorded clonidine HCl 0.1 mg tablet 0.1 mg PO TID PRN 30 Days tab 12/21/19 hydroxyzine HCl 25 mg tablet 25 mg PO Q6H PRN 30 Days #60 tab 12/21/19 naproxen 500 mg tablet 500 mg PO BID PRN 30 Days #60 tab 12/21/19 quetiapine 100 mg tablet (Seroquel) 100 mg PO BEDTIME 30 Days #30 tab 11/06/20 sertraline 50 mg tablet 100 mg PO DAILY 30 Days #60 tab 12/21/19 trazodone 50 mg tablet 100 mg PO BEDTIME MRX1 PRN 30 Days 12/21/19 #30 tab naloxone 4 mg/actuation nasal 4 mg INTRANASAL (ALT) ONCE PRN 1 07/03/20 spray (Narcan) Days #2 ea buprenorphine 8 mg-naloxone 2 mg 1 film SUBLINGUAL DAILY #2 ea 10/02/20 sublingual film (Suboxone) <Ana Garcia NP - Last Filed: 10/25/20 01:40> Allergies/Adverse Reactions: Allergies Allergy/AdvReac Type Severity Reaction Status Date / Time No Known Allergies Allergy Verified 08/07/20 11:44 <Ana Garcia NP - Last Filed: 10/25/20 01:40> Review of Systems Review of Systems: Yes Unobtainable due to mental status <Ana Garcia NP - Last Filed: 10/25/20 01:40> PMFSH Past Medical History Attestation statement: The following information was validated with the patient. <Ana Garcia NP - Last Filed: 10/25/20 01:40> Source: old records reviewed <Ana Garcia NP - Last Filed: 10/25/20 01:40> Medical History: Medical History Bilateral shoulder bursitis Hepatitis C Sepsis Substance abuse <Ana Garcia NP - Last Filed: 10/25/20 01:40> Family History Family History: Family History Father Lung cancer Throat cancer Mother Stomach cancer Paternal Grandfather Myocardial infarction <Ana Garcia NP - Last Filed: 10/25/20 01:40> Social History Social History: Social History Household Members: Other Household Members Other:: lives in half way house Housing: Apartment Do you presently have visiting nurse or other home services: No Alcohol intake: current Alcohol intake frequency: does not drink Cigarette Packs Per Day: 0.5 Cigarettes Per Day: 10.0 Years Smoked: 24 Second Hand Smoke Exposure: Yes Substance Use Type: Crack/Cocaine and Heroin Advance Directives: No service: No Sexual orientation: Straight/Heterosexual <Ana Garcia NP - Last Filed: 10/25/20 01:40> Physical Exam Vital Signs: Vital Signs: Last Vital Signs Temp 97.8 F 10/25/20 03:25 Pulse 70 10/25/20 03:25 Resp 16 10/25/20 03:25 BP 105/56 L 10/25/20 03:25 Pulse Ox 97 10/25/20 03:25 Body Mass Index 25.7 <Ana Garcia NP - Last Filed: 10/25/20 01:40> Vital Signs: Last Vital Signs Temp 97.8 F 10/25/20 03:25 Pulse 70 10/25/20 03:25 Resp 16 10/25/20 03:25 BP 105/56 L 10/25/20 03:25 Pulse Ox 97 10/25/20 03:25 Body Mass Index 25.7 <Prema Contreras MD - Last Filed: 10/25/20 03:46> Appearance: Alert. Oriented self. Intoxicated. Eyes: Pupils equal, round and reactive to light. Sclera nonicteric. ENT: Pharynx normal. Moist mucous membranes. Neck: Normal inspection. Neck supple. CVS: Normal heart rate and rhythm. Pulses normal. Respiratory: No respiratory distress. Breath sounds normal. Abdomen: Soft and nontender. Skin: Skin warm and dry. Normal skin color. Normal skin turgor. Extremities: No lower extremity edema. Neuro: No motor deficit. No sensory deficit. <Ana Garcia NP - Last Filed: 10/25/20 01:40> Course Course Course Narrative: 44-year-old male presents for ETOH intoxication. Patient is not suicidal or homicidal. Plan [facility] care [facility] to [facility]. He has had prior visits for alcohol abuse disorder <Ana Garcia NP - Last Filed: 10/25/20 01:40> Reevaluation(s) Reevaluation #1: Patient re-evaluated and currently awake and evaluated for a steady gait. He states he only consumed approximately 2 beers, but states he injected cocaine into his neck vein and that why he arrived by EMS. He currently states that he is feeling well and needs to leave. Patient is clinically sober and stable for discharge to home. <Prema Contreras MD - Last Filed: 10/25/20 03:46> Time: 03:45 <Prema Contreras MD - Last Filed: 10/25/20 03:46> MDM - Alcohol Differential Diagnosis Differential diagnosis: Likely alcohol dependence and alcohol intoxication <Ana Garcia NP - Last Filed: 10/25/20 01:40> Medical Records Attestation: I reviewed the patient's medical records. <Ana Garcia NP - Last Filed: 10/25/20 01:40> Discharge Plan Discharge Clinical Impression: Cocaine use disorder <Ana Garcia NP - Last Filed: 10/25/20 01:40> Patient Disposition: Home, Self-Care <Ana Garcia NP - Last Filed: 10/25/20 01:40> Instructions: Alcohol Use Disorder (ED), Cocaine Abuse (ED) <Ana Garcia NP - Last Filed: 10/25/20 01:40> Additional Instructions: Please consider detox Thank you for choosing this emergency department for evaluation. Please follow-up with primary care physician as needed. Return to the emergency department for any new, concerning, or worsening symptoms. <Ana Garcia NP - Last Filed: 10/25/20 01:40> Prescriptions: No Action clonidine HCl 0.1 mg Tablet 0.1 mg PO TID PRN (Reason: anxiety) 30 Days RF: 1 hydroxyzine HCl 25 mg Tablet 25 mg PO Q6H PRN (Reason: Opiate Withdrawal) 30 Days Qty: 60 RF: 1 trazodone 50 mg Tablet 100 mg PO BEDTIME MRX1 PRN (Reason: Insomnia) 30 Days Qty: 30 RF: 1 sertraline 50 mg Tablet 100 mg PO DAILY 30 Days Qty: 60 RF: 1 naproxen 500 mg Tablet 500 mg PO BID PRN (Reason: Pain, Moderate (Pain Scale 4-6) 30 Days Qty: 60 RF: 1 quetiapine [Seroquel] 100 mg tablet 100 mg PO BEDTIME 30 Days Qty: 30 RF: 0 Narcan 4 mg/actuation spray,non-aerosol 4 mg intranasal (ALT) ONCE PRN (Reason: opioid overdose) 1 Days Qty: 2 RF: 0 buprenorphine-naloxone [Suboxone] 8-2 mg film 1 film sublingual DAILY Qty: 2 RF: 0 <Ana Garcia CONTRACT GRAPHIC DESIGNER - Last Filed: 10/25/20 01:40>
[2020-10-25 03:25] VITALS: BP 105/56; PULSE 70; RESP 16; TEMP 36.6; O2SAT 97
== END 2020-10-25 04:03 | disposition home or self-care (01) ==
PROVIDERS: Emergency Provider Student in an Organized Health Care Education/Training Program
DX: F10.129 Alcohol abuse with intoxication, unspecified (principal); Y90.9 Presence of alcohol in blood, level not specified; F14.10 Cocaine abuse, uncomplicated; F17.210 Nicotine dependence, cigarettes, uncomplicated; Z79.899 Other long term (current) drug therapy; Z71.6 Tobacco abuse counseling
CPT/HCPCS: 99283

== ENCOUNTER → 2021-06-18 12:03 | Outpatient (RCR) | payer OTHER, SELFPAY ==
--- NOTE | 2020-02-29 18:14 | MHC.PT.EP ---
[facility] [place] Office [place] Office [place] Office [address] [phone] F: [phone] F: [phone] F: [phone] F: [phone] Physical Therapy Plan of Care Date of Evaluation: 02/29/20 Date of Surgery: Diagnosis: Bursitis of R shoulder. Assessment: Pt is a 44 y/o male referred to PT for eval and treat of R shoulder bursitis who presents with R > L shoulder dysfunction resulting in decreased tolerance for reaching high shelves, dressing pullovers, reaching his back for hygiene and dressing, as well as pushing/ pulling and lifting objects of weight secondary to decreased shoulder ROM and strength, TTP of R anterior shoulder, decreased scapular posture, R distal clavicle non-union, Hx of blood disease chronically affecting shoulder joints, and pain. Pt is deemed an appropriate candidate to receive skilled PT in order to address his physical limitations to improve his functional ability. Frequency and Duration: The patient will be seen 2 x/wk x 6 wks. Short Term Goals: In 1 week: initiate HEP with evidence of compliance. In 3 weeks: Pt will achieve > 159 degrees, R shoulder AROM flexion; initial: 120. Jail Goals: In 6 weeks: Pt will be able to place object on high shelf with managed Sx, initial: unable. In 6 weeks: I with HEP. In 6 week: Pt will be able to dress pullovers without difficulty. Treatment Plan: Modalities to reduce pain, spasms and effusion. Manual therapy to restore motion and function. Therapeutic exercise to improve strength and flexibility. Neuromuscular re-education for posture and balance. Therapeutic activities to return to functional activities of daily living. Electronically signed by: Arturo Bazzi PT Please sign and return to therapist. Thank you for your referral.
--- NOTE | 2020-04-01 10:46 | MHC.PT.DC ---
[facility] [place] Office [place] Office [place] Office [address] Fany Birch [address] [phone] F: [phone] F: [phone] F: [phone] F: [phone] Physical Therapy Discharge Report Diagnosis: Bursitis of R shoulder. Date of Surgery: Date of Evaluation: 02/29/20 Date of Discharge: 04/01/20 Treatments to Date: 1 Cancellations to Date: 0 No Shows to Date: 0 Discharge Status: Visit Non-compliance Discharge Summary: Pt did not follow up with therapy x 30 days since initial evaluation and is DC'd per [facility] attendance policy. Electronically signed by: Arturo Bazzi PT Please sign and return to therapist. Thank you for your referral.
== END | disposition home or self-care (01) ==
LOC: HO.PTCHIC 02-29 12:53
PROVIDERS: PCP Internal Medicine; Visit Provider Orthopaedic Surgery
DX: M75.51 Bursitis of right shoulder (principal)
CPT/HCPCS: 97110; 97161

== ENCOUNTER 2021-07-26 21:11 | Emergency (ER) | payer OTHER, SELFPAY ==
--- NOTE | ~2021-07-26 | XR_ITS ---
EXAMINATION: XR HAND, RIGHT CLINICAL INFORMATION: Right finger dislocation COMPARISON: None TECHNIQUE: PA, lateral, and oblique views of the right hand. FINDINGS: There is a dislocation at the PIP joint of the small finger. No phalanx is displaced dorsally and proximally with respect to the head of the proximal phalanx. Possible small fracture fragment adjacent to the head of the proximal phalanx along its radial aspect. Soft tissue irregularity represents possible laceration Remaining bone and joints normal. XR/XR hand RT min 3V IMPRESSION: Dislocation at the PIP joint of the small finger
--- NOTE | 2021-07-26 21:59 | PC.NURSE ---
pt called two time to triage. no answer
[2021-07-26 22:02] VITALS: BP 136/85; PULSE 109; RESP 20; TEMP 36.1; O2SAT 96; BMI 27.1
--- NOTE | 2021-07-27 00:28 | PC.NURSE ---
Pt was called into the ED @ midnight, pt was not in the [facility]. Per registration, @ 0015, pt returned to [facility], stated he was outside.
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
[2021-07-27] MEDS: Amoxicillin/Potassium Clav 875 MG TABLET PO (01:51)
[2021-07-27] MEDS: Ketorolac Tromethamine 60 MG/2 ML VIAL IM (01:51)
[2021-07-27] MEDS: Diphth,Pertus(ACell),Tet Adult 0.5 ML SYRINGE IM (01:52)
== END 2021-07-27 02:42 | disposition home or self-care (01) ==
PROVIDERS: Emergency Provider Internal Medicine; PCP Internal Medicine
DX: S63.286A Dislocation of proximal interphalangeal joint of right little finger, initial encounter (principal); S60.416A Abrasion of right little finger, initial encounter; V18.0XXA Pedal cycle driver injured in noncollision transport accident in nontraffic accident, initial encounter; Y93.55 Activity, bike riding; Y92.9 Unspecified place or not applicable; Y99.9 Unspecified external cause status
CPT/HCPCS: 26770; 73130; 90471; 90715; 96372; 99284; J1885

== ENCOUNTER 2021-08-03 11:37 | Outpatient (REF) | payer OTHER, SELFPAY | END 2021-08-03 11:38 | disposition home or self-care (01) | LOC: HO.HOSX 11:37 | PROVIDERS: Visit Provider Orthopaedic Surgery | DX: Z13.89 Encounter for screening for other disorder (principal) ==

== ENCOUNTER 2021-08-05 08:28 | Outpatient (REF) | payer OTHER, SELFPAY | END 2021-08-05 08:29 | disposition home or self-care (01) | LOC: HO.HOSX 08:28 | PROVIDERS: Visit Provider Orthopaedic Surgery | DX: Z13.89 Encounter for screening for other disorder (principal) ==